=== PATIENT | male | born 1970 | race Caucasian/White ===

== ENCOUNTER → 2016-07-03 | Outpatient (CLI) | payer OTHER ==
--- NOTE | 2016-07-04 08:50 | XR ---
EXAMINATION TYPE: XR Hip Complete LT DATE OF EXAM: 07/03/2016 3:42 PM COMPARISON: NONE HISTORY: Pain TECHNIQUE: 2 views submitted FINDINGS: There is no evidence of erosive change or acute fracture. There is a tiny density along the lateral a cetabulum with hypertrophic change. This can occasionally seen with acetabular labral tear and femora l acetabular impingement. Correlate with MRI as clinically warranted. IMPRESSION: 1. Findings suspicious for acetabular labral tear with possible femoral acetabular impingement. Corre late with MRI as clinically warranted.
== END | disposition home or self-care (01) ==
LOC: RADXRYALE 15:22
PROVIDERS: ATTEND Acupuncturist
DX: M25.552 Pain in left hip (principal)
CPT/HCPCS: 73502

== ENCOUNTER 2016-12-06 18:33 | Observation (INO) | payer OTHER ==
[2016-12-06] MEDS ORDERED: RX INFO: IV CONTRAST WAS GIVEN 1 EACH MISC MISCELLANE PRN (19:21)
--- NOTE | 2016-12-06 19:25 | ED ---
Abdominal Pain HPI - General Source: patient, RN notes reviewed, old records reviewed Mode of arrival: ambulatory Limitations: no limitations <Lisa Quezada - Last Filed: 12/06/16 20:01> <Te Hammond - Last Filed: 12/06/16 22:12> <Mingo Webster - Last Filed: 12/10/16 22:53> - General Chief Complaint: Abdominal Pain Stated Complaint: left side stomach pain Time Seen by Provider: 12/06/16 19:08 - History of Present Illness Initial Comments: 46-year-old male presents emergency department chief complaining of left-sided abdominal pain. Patient reports yesterday when he was working out in his car he was working with ranges and felt a sudden pop in his abdomen. Patient reports that he felt his intestines protrude through the air and he did have a difficult time being able to put them back in. Patient reports he is had abdominal pain TODAY. He reports that anytime he moves the area becomes increasingly painful and tender. He did report that he had a few episodes of vomiting after drinking coffee today. Patient reports he feels nauseated. Denies any fever or chills. He denies any redness to the abdomen. is a relatively thin man, and states that each time he doesn't movement he can feel something protrudes outward. Patient denies any recent fever, chills, shortness of breath, chest pain, back pain, abdominal pain, nausea vomiting, numbness or tingling, dysuria or hematuria, constipation or diarrhea, headaches or visual changes, or any other current symptoms (Lisa Quezada) - Related Data Home Medications Medication Instructions Recorded Confirmed Gabapentin [Neurontin] 300 mg PO TID 12/06/16 12/06/16 Lisinopril [Zestril] 2.5 mg PO DAILY 12/06/16 12/06/16 oxyCODONE-APAP 10-325MG [Percocet 1 tab PO Q6HR PRN 12/06/16 12/06/16 10-325 mg] rOPINIRole HCL [Requip] 0.5 mg PO HS 12/06/16 12/06/16 tiZANidine HCL [Zanaflex] 4 mg PO TID 12/06/16 12/06/16 Previous Rx's Medication Instructions Recorded Albuterol Sulfate [Proventil Hfa] 2 puff INHALATION QID #1 inhaler 12/08/16 Ipratropium [place] [Atrovent Hfa] 2 puff INHALATION QID #1 inhaler 12/08/16 Nicotine 21Mg/24Hr Patch [Habitrol] 1 patch TRANSDERM DAILY #30 patch 12/08/16 Omeprazole [PriLOSEC] 20 mg PO AC-BID #60 cap 12/08/16 predniSONE 10 mg PO DIRECTED #30 tab 12/08/16 Allergies Allergy/AdvReac Type Severity Reaction Status Date / Time Penicillins Allergy Unknown Verified 12/06/16 19:11 Review of Systems ROS Other: All systems not noted in ROS Statement are negative. <Lisa Quezada - Last Filed: 12/06/16 20:01> ROS Other: All systems not noted in ROS Statement are negative. <Te Hammond - Last Filed: 12/06/16 22:12> ROS Other: All systems not noted in ROS Statement are negative. <Mingo Webster - Last Filed: 12/10/16 22:53> ROS Statement: Those systems with pertinent positive or pertinent negative responses have been documented in the HPI. Past Medical History Additional Past Medical History / Comment(s): chronic back pain History of Any Multi-Drug Resistant Organisms: None Reported Past Surgical History: No Surgical Hx Reported Past Psychological History: No Psychological Hx Reported Smoking Status: Current every day smoker Past Alcohol Use History: None Reported Past Drug Use History: None Reported <Lisa Quezada - Last Filed: 12/06/16 20:01> General Exam Limitations: no limitations General appearance: alert, in no apparent distress Head exam: Present: atraumatic, normocephalic, normal inspection Eye exam: Present: normal appearance, PERRL, EOMI. Absent: scleral icterus, conjunctival injection, periorbital swelling ENT exam: Present: normal exam, mucous membranes moist Neck exam: Present: normal inspection. Absent: tenderness, meningismus, lymphadenopathy Respiratory exam: Present: normal lung sounds bilaterally. Absent: respiratory distress, wheezes, rales, rhonchi, stridor Cardiovascular Exam: Present: regular rate, normal rhythm, normal heart sounds. Absent: systolic murmur, diastolic murmur, rubs, gallop, clicks GI/Abdominal exam: Present: soft, tenderness (LUQ and Periumbilical tenderness. No palpable bulge noted on Carnet sign. ), normal bowel sounds. Absent: distended, guarding, rebound, rigid Extremities exam: Present: normal inspection, full ROM, normal capillary refill. Absent: tenderness, pedal edema, joint swelling, calf tenderness Back exam: Present: normal inspection Neurological exam: Present: alert, oriented X3, CN II-XII intact Psychiatric exam: Present: normal affect, normal mood Skin exam: Present: warm, dry, intact, normal color. Absent: rash <Lisa Quezada - Last Filed: 12/06/16 20:01> Vital Signs 12/06/16 12/06/16 12/06/16 18:56 20:59 21:26 Temperature 98.4 F 98.1 F Pulse Rate 74 56 L 100 Respiratory 20 18 18 Rate Blood Pressure 129/78 135/88 O2 Sat by Pulse 99 99 Oximetry 12/06/16 22:34 Temperature 98.1 F Pulse Rate 63 Respiratory 16 Rate Blood Pressure 130/82 O2 Sat by Pulse 97 Oximetry Medical Decision Making - Lab Data Result diagrams: 12/06/16 19:35 <Lisa Quezada - Last Filed: 12/06/16 20:01> - Lab Data Result diagrams: 12/06/16 19:35 12/06/16 19:35 <Te Hammond - Last Filed: 12/06/16 22:12> - Lab Data Result diagrams: 12/08/16 07:03 12/07/16 08:26 <Mingo Webster - Last Filed: 12/10/16 22:53> - Medical Decision Making I saw this patient in conjunction with the physician care management assistant. I performed independent history and physical exam. Agree with case management. (Mingo Webster) - Lab Data Lab Results 12/06/16 12/06/16 12/06/16 Range/Units 19:35 19:35 20:51 WBC 13.3 H (3.8-10.6) k/uL RBC 4.38 (4.30-5.90) m/uL Hgb 13.6 (13.0-17.5) gm/dL Hct 41.8 (39.0-53.0) % MCV 95.5 (80.0-100.0) fL MCH 31.0 (25.0-35.0) pg MCHC 32.5 (31.0-37.0) g/dL RDW 13.7 (11.5-15.5) % Plt Count 210 (150-450) k/uL Neutrophils % 73 % Lymphocytes % 17 % Monocytes % 7 % Eosinophils % 2 % Basophils % 0 % Neutrophils # 9.7 H (1.3-7.7) k/uL Lymphocytes # 2.2 (1.0-4.8) k/uL Monocytes # 0.9 (0-1.0) k/uL Eosinophils # 0.3 (0-0.7) k/uL Basophils # 0.1 (0-0.2) k/uL Sodium 135 L (137-145) mmol/L Potassium 3.7 (3.5-5.1) mmol/L Chloride 103 (98-107) mmol/L Carbon Dioxide 21 L (22-30) mmol/L Anion Gap 11 mmol/L BUN 11 (9-20) mg/dL Creatinine 0.72 (0.66-1.25) mg/dL Est GFR (MDRD) Af Amer >60 (>60 ml/min/1.73 sqM) Est GFR (MDRD) Non-Af >60 (>60 ml/min/1.73 sqM) Glucose 106 H (74-99) mg/dL Plasma Lactic Acid [place] 0.7 (0.7-2.0) mmol/L Calcium 9.3 (8.4-10.2) mg/dL Total Bilirubin 0.8 (0.2-1.3) mg/dL AST 42 (17-59) U/L ALT 41 (21-72) U/L Alkaline Phosphatase 59 (38-126) U/L Total Protein 6.9 (6.3-8.2) g/dL Albumin 4.4 (3.5-5.0) g/dL Amylase 38 (30-110) U/L Lipase 84 (23-300) U/L Disposition <Lisa Quezada - Last Filed: 12/06/16 20:01> <Te Hammond - Last Filed: 12/06/16 22:12> <Mingo Webster - Last Filed: 12/10/16 22:53> Clinical Impression: Gastritis, Intractable abdominal pain Disposition: ADMITTED IP TO THIS HOSP Condition: Stable Addendum entered and electronically signed by Lisa Quezada PA-C 12/07/16 07 :56: At 8:10 PM on 09/05/2016 care was transferred to [facility].
[2016-12-06] MEDS: SODIUM CHLORIDE 0.9% 1,000 ML IV SCH (19:39)
[2016-12-06 19:45] LABS: Basophils # (A) 0.1 k/uL (0-0.2); Basophils % (A) 0 %; CH 31.7; CHCM 33.3; Eosinophils # (A) 0.3 k/uL (0-0.7); Eosinophils % (A) 2 %; HCT 41.8 % (39.0-53.0); HDW 2.22; HGB 13.6 gm/dL (13.0-17.5); Luc # (Auto) 0.18; Luc % (Auto) 1; Lymphocytes # (A) 2.2 k/uL (1.0-4.8); Lymphocytes % (A) 17 %; MCHC 32.5 g/dL (31.0-37.0); MCV 95.5 fL (80.0-100.0); Mean Platelet Volume 8.3; Monocytes # (A) 0.9 k/uL (0-1.0); Monocytes % (A) 7 %; Neutrophils # (A) 9.7 k/uL (1.3-7.7); Neutrophils % (A) 73 %; RBC 4.38 m/uL (4.30-5.90); RDW 13.7 % (11.5-15.5); WBC 13.3 k/uL (3.8-10.6); WBC (Perox) 13.78
[2016-12-06 20:02] LABS: ALT 41 U/L (21-72); AST 42 U/L (17-59); Alkaline Phosphatase 59 U/L (38-126); Amylase 38 U/L (30-110); Anion Gap 11 mmol/L; Blood Urea Nitrogen 11 mg/dL (9-20); Calcium 9.3 mg/dL (8.4-10.2); Carbon Dioxide 21 mmol/L (22-30); Chloride 103 mmol/L (98-107); Glucose 106 mg/dL (74-99); Non-African American GFR(MDRD) >60 (>60 ml/min/1.73 sqM); Potassium 3.7 mmol/L (3.5-5.1); Sodium 135 mmol/L (137-145); Total Bilirubin 0.8 mg/dL (0.2-1.3); Total Protein 6.9 g/dL (6.3-8.2)
--- NOTE | 2016-12-06 20:30 | CT ---
EXAMINATION TYPE: CT abdomen pelvis w con DATE OF EXAM: 12/06/2016 COMPARISON: NONE HISTORY: Patient complains of LUQ pain and bulging, nausea, and vomiting. CT DLP: 326.3 mGycm Automated exposure control for dose reduction was used. TECHNIQUE: Helical acquisition of images was performed from the lung bases through the pelvis. CONTRAST: Performed without Oral Contrast and with IV Contrast, patient injected with 100 mL of Omnipaque 300. FINDINGS: Lung bases are clear of infiltrate. Heart size is normal. There is no pleural effusion. The liver spleen pancreas gallbladder appear normal. Bile ducts are not dilated. There is no adrenal mass. Kidneys show satisfactory contrast opacification. There is no hydronephrosi s. There is no retroperitoneal adenopathy. There is no ascites. Bladder distends smoothly. There is n o sign of a pelvic mass. I see no bony destructive process. Appendix is not definitely seen. There is no sign of appendicitis. There is no sign of a hernia. There is thickening and decreased density of the wall of the body and antrum of the stomach. This saeed sures up to 1.6 cm in thickness. IMPRESSION: There is diffuse thickening of the wall of the stomach with decreased attenuation consistent with carolyn ma. The appearance is nonspecific. I would consider nonspecific gastritis. Gastric ischemia.
[2016-12-06] MEDS ORDERED: HYDROmorphone 0.5 MG/0.5 ML SYRINGE IVP STA (21:57)
[2016-12-06] MEDS ORDERED: PANTOPRAZOLE 40 MG/10 ML VIAL IVP STA (21:57)
[2016-12-06] MEDS ORDERED: NALOXONE 0.4 MG/ML 1 ML VIAL IV PRN (22:13)
[2016-12-07] MEDS: HYDROmorphone 0.5 MG/0.5 ML SYRINGE IVP PRN ×3 (01:10→12:59)
[2016-12-07] MEDS: SODIUM CHLORIDE 0.9% 1,000 ML IV SCH ×2 (04:47→18:01)
[2016-12-07] MEDS: oxyCODONE-APAP 10-325MG 1 EACH TAB PO PRN ×2 (07:31→21:32)
[2016-12-07] MEDS: LISINOPRIL 2.5 MG TAB PO SCH (08:21)
[2016-12-07] MEDS: GABAPENTIN 300 MG CAP PO SCH ×3 (08:22→21:32)
[2016-12-07 08:39] LABS: Basophils % (A) 0 %; CHCM 32.8; Eosinophils # (A) 0.3 k/uL (0-0.7); Eosinophils % (A) 2 %; HCT 42.8 % (39.0-53.0); HGB 13.6 gm/dL (13.0-17.5); Luc # (Auto) 0.17; Luc % (Auto) 2; Lymphocytes # (A) 1.8 k/uL (1.0-4.8); Lymphocytes % (A) 18 %; MCH 31.1 pg (25.0-35.0); MCHC 31.7 g/dL (31.0-37.0); MCV 98.2 fL (80.0-100.0); Mean Platelet Volume 7.5; Monocytes # (A) 0.7 k/uL (0-1.0); Monocytes % (A) 7 %; Neutrophils # (A) 7.4 k/uL (1.3-7.7); Neutrophils % (A) 71 %; RBC 4.36 m/uL (4.30-5.90); RDW 12.6 % (11.5-15.5); WBC 10.4 k/uL (3.8-10.6); WBC (Perox) 10.68
[2016-12-07] MEDS: tiZANidine 4 MG TAB PO SCH ×3 (08:44→21:32)
[2016-12-07 08:56] LABS: ALT 40 U/L (21-72); AST 32 U/L (17-59); Alkaline Phosphatase 59 U/L (38-126); Anion Gap 13 mmol/L; Blood Urea Nitrogen 8 mg/dL (9-20); Calcium 8.9 mg/dL (8.4-10.2); Carbon Dioxide 17 mmol/L (22-30); Chloride 109 mmol/L (98-107); Glucose 81 mg/dL (74-99); Non-African American GFR(MDRD) >60 (>60 ml/min/1.73 sqM); Potassium 4.2 mmol/L (3.5-5.1); Sodium 139 mmol/L (137-145); Total Bilirubin 0.8 mg/dL (0.2-1.3); Total Protein 6.5 g/dL (6.3-8.2)
--- NOTE | 2016-12-07 14:05 | P.GSCN ---
<Danelle Danielle - Last Filed: 12/07/16 13:51> History of Present Illness Consult date: 12/07/16 Reason for Consult: Left-sided abdominal pain History of present illness: 46-year-old male being seen at the request of the attending for surgical eval for left sided abdominal pain. Patient presented on the day of admission to the emergency room stated that he was working on a car lifting something heavy when he felt something pop in his abdomen. Patient stated that he had abdominal pain to the bilateral lower abdominal wall left greater than the right. Patient stated that he felt a bulge painful tender. Patient denied any fever chills denies any redness to the abdomen. Patient stated that he went to bed and tried to rest the pain persist presented to the emergency room. Patient does give a history of smoking marijuana on the day of admission to the emergency room states he drinks beer daily up to a sixpack last alcohol the day of admission to the emergency room. Additionally patient states he did smoke marijuana on the day of admission to the emergency room patient denies any similar episodes. Denies any shortness of breath chest pain back pain nausea vomiting or change in bowel habits. Patient denies any unintentional weight loss. Patient denies any decrease appetite. Patient did have a CAT scan of the abdomen pelvis with contrast it did show dye diffuse thickening of the wall of the stomach with decreased attenuation consistent with edema Patient has no significant past surgical history no medical history Review of Systems Essentially unremarkable except as mentioned in the present illness Past Medical History Past Medical History: COPD, Hypertension Additional Past Medical History / Comment(s): chronic back, neck, shoulder pain History of Any Multi-Drug Resistant Organisms: None Reported Past Surgical History: No Surgical Hx Reported Past Anesthesia/Blood Transfusion Reactions: No Reported Reaction Past Psychological History: No Psychological Hx Reported Smoking Status: Current every day smoker Past Alcohol Use History: None Reported Past Drug Use History: Marijuana - Past Family History Mother Family Medical History: Cancer Additional Family Medical History / Comment(s): Lung Cancer Father Family Medical History: Congestive Heart Failure (CHF), Dementia Additional Family Medical History / Comment(s): Bipolar Medications and Allergies Home Medications Medication Instructions Recorded Confirmed Type Gabapentin [Neurontin] 300 mg PO TID 12/06/16 12/06/16 History Ibuprofen [Motrin] 800 mg PO TID PRN 12/06/16 12/06/16 History Lisinopril [Zestril] 2.5 mg PO DAILY 12/06/16 12/06/16 History oxyCODONE-APAP 10-325MG [Percocet 1 tab PO Q6HR PRN 12/06/16 12/06/16 History 10-325 mg] rOPINIRole HCL [Requip] 0.5 mg PO HS 12/06/16 12/06/16 History tiZANidine HCL [Zanaflex] 4 mg PO TID 12/06/16 12/06/16 History Allergies Allergy/AdvReac Type Severity Reaction Status Date / Time Penicillins Allergy Unknown Verified 12/06/16 19:11 Surgical - Exam Vital Signs Temp Pulse Resp BP Pulse Ox 98.4 F 74 20 129/78 99 12/06/16 18:56 12/06/16 18:56 12/06/16 18:56 12/06/16 18:56 12/06/16 18:56 GENERAL APPEARANCE: 46-year-old male looking older than stated age thin alert , oriented, in no acute distress. VITAL SIGNS: Reviewed HEENT: Head is normocephalic and atraumatic. Pupils are equal and reactive. The nares are patent. Oropharynx is clear without lesions. NECK: Supple without lymphadenopathy. Traches midline. HEART: S1, S2. Regular rate and rhythm. Denies chest pain LUNGS: No crackles or wheezes are heard. On room air adequate air entry no cough noted no shortness of breath ABDOMEN: Soft flat, nontender, nondistended with good bowel sounds. No peritoneal signs. No palpable organomegaly or masses. EXTREMITIES: Normal skin color and turgor. No cyanosis, rash, ulceration, clubbing or edema. Radial pedal pulses are 2/4 bilaterally. NEUROLOGICAL: No focal deficits. Strength and sensation are grossly intact. Results - Labs 12/07/16 08:26 12/07/16 08:26 Abnormal Lab Results - Last 24 Hours (Table) 12/06/16 12/06/16 12/07/16 Range/Units 19:35 19:35 08:26 WBC 13.3 H (3.8-10.6) k/uL Neutrophils # 9.7 H (1.3-7.7) k/uL Sodium 135 L (137-145) mmol/L Chloride 109 H (98-107) mmol/L Carbon Dioxide 21 L 17 L (22-30) mmol/L BUN 8 L (9-20) mg/dL Glucose 106 H (74-99) mg/dL Diabetes panel 12/06/16 12/07/16 Range/Units 19:35 08:26 Sodium 135 L 139 (137-145) mmol/L Potassium 3.7 4.2 (3.5-5.1) mmol/L Chloride 103 109 H (98-107) mmol/L Carbon Dioxide 21 L 17 L (22-30) mmol/L BUN 11 8 L (9-20) mg/dL Creatinine 0.72 0.72 (0.66-1.25) mg/dL Glucose 106 H 81 (74-99) mg/dL Calcium 9.3 8.9 (8.4-10.2) mg/dL AST 42 32 (17-59) U/L ALT 41 40 (21-72) U/L Alkaline Phosphatase 59 59 (38-126) U/L Total Protein 6.9 6.5 (6.3-8.2) g/dL Albumin 4.4 4.1 (3.5-5.0) g/dL Calcium panel 12/06/16 12/07/16 Range/Units 19:35 08:26 Calcium 9.3 8.9 (8.4-10.2) mg/dL Albumin 4.4 4.1 (3.5-5.0) g/dL Pituitary panel 12/06/16 12/07/16 Range/Units 19:35 08:26 Sodium 135 L 139 (137-145) mmol/L Potassium 3.7 4.2 (3.5-5.1) mmol/L Chloride 103 109 H (98-107) mmol/L Carbon Dioxide 21 L 17 L (22-30) mmol/L BUN 11 8 L (9-20) mg/dL Creatinine 0.72 0.72 (0.66-1.25) mg/dL Glucose 106 H 81 (74-99) mg/dL Calcium 9.3 8.9 (8.4-10.2) mg/dL Adrenal panel 12/06/16 12/07/16 Range/Units 19:35 08:26 Sodium 135 L 139 (137-145) mmol/L Potassium 3.7 4.2 (3.5-5.1) mmol/L Chloride 103 109 H (98-107) mmol/L Carbon Dioxide 21 L 17 L (22-30) mmol/L BUN 11 8 L (9-20) mg/dL Creatinine 0.72 0.72 (0.66-1.25) mg/dL Glucose 106 H 81 (74-99) mg/dL Calcium 9.3 8.9 (8.4-10.2) mg/dL Total Bilirubin 0.8 0.8 (0.2-1.3) mg/dL AST 42 32 (17-59) U/L ALT 41 40 (21-72) U/L Alkaline Phosphatase 59 59 (38-126) U/L Total Protein 6.9 6.5 (6.3-8.2) g/dL Albumin 4.4 4.1 (3.5-5.0) g/dL Assessment and Plan Assessment: Impression Present on admission left lower quadrant pain with Umbilical tenderness Daily consumption of alcohol 6 pack a day last drink December 06 Daily current smoker 1 pack a day greater than a 20 year history probable COPD CAT scan of the abdomen pelvis shows diffuse thickening of the wall of the stomach consistent with edema gastritis not ruled out Plan Patient will be scheduled for an EGD today to evaluate wall thickening of the stomach gastritis not ruled out Smoking cessation reinforced patient's been advised to stop smoking cigarettes Abstinence from alcohol reinforced IV fluid for hydration Monitor closely for impending DTs DVT and GI prophylaxis Further recommendations pending The above impression and plan of care have been discussed and directed by signing physician. Danelle Danielle nurse practitioner acting as scribe for signing physician. <Lyudmila Marion - Last Filed: 12/07/16 16:11> Surgical - Exam Vital Signs Temp Pulse Resp BP Pulse Ox 98.4 F 74 20 129/78 99 12/06/16 18:56 12/06/16 18:56 12/06/16 18:56 12/06/16 18:56 12/06/16 18:56 Results - Labs 12/07/16 08:26 12/07/16 08:26 Abnormal Lab Results - Last 24 Hours (Table) 12/06/16 12/06/16 12/07/16 Range/Units 19:35 19:35 08:26 WBC 13.3 H (3.8-10.6) k/uL Neutrophils # 9.7 H (1.3-7.7) k/uL Sodium 135 L (137-145) mmol/L Chloride 109 H (98-107) mmol/L Carbon Dioxide 21 L 17 L (22-30) mmol/L BUN 8 L (9-20) mg/dL Glucose 106 H (74-99) mg/dL Diabetes panel 12/06/16 12/07/16 Range/Units 19:35 08:26 Sodium 135 L 139 (137-145) mmol/L Potassium 3.7 4.2 (3.5-5.1) mmol/L Chloride 103 109 H (98-107) mmol/L Carbon Dioxide 21 L 17 L (22-30) mmol/L BUN 11 8 L (9-20) mg/dL Creatinine 0.72 0.72 (0.66-1.25) mg/dL Glucose 106 H 81 (74-99) mg/dL Calcium 9.3 8.9 (8.4-10.2) mg/dL AST 42 32 (17-59) U/L ALT 41 40 (21-72) U/L Alkaline Phosphatase 59 59 (38-126) U/L Total Protein 6.9 6.5 (6.3-8.2) g/dL Albumin 4.4 4.1 (3.5-5.0) g/dL Calcium panel 12/06/16 12/07/16 Range/Units 19:35 08:26 Calcium 9.3 8.9 (8.4-10.2) mg/dL Albumin 4.4 4.1 (3.5-5.0) g/dL Pituitary panel 12/06/16 12/07/16 Range/Units 19:35 08:26 Sodium 135 L 139 (137-145) mmol/L Potassium 3.7 4.2 (3.5-5.1) mmol/L Chloride 103 109 H (98-107) mmol/L Carbon Dioxide 21 L 17 L (22-30) mmol/L BUN 11 8 L (9-20) mg/dL Creatinine 0.72 0.72 (0.66-1.25) mg/dL Glucose 106 H 81 (74-99) mg/dL Calcium 9.3 8.9 (8.4-10.2) mg/dL Adrenal panel 12/06/16 12/07/16 Range/Units 19:35 08:26 Sodium 135 L 139 (137-145) mmol/L Potassium 3.7 4.2 (3.5-5.1) mmol/L Chloride 103 109 H (98-107) mmol/L Carbon Dioxide 21 L 17 L (22-30) mmol/L BUN 11 8 L (9-20) mg/dL Creatinine 0.72 0.72 (0.66-1.25) mg/dL Glucose 106 H 81 (74-99) mg/dL Calcium 9.3 8.9 (8.4-10.2) mg/dL Total Bilirubin 0.8 0.8 (0.2-1.3) mg/dL AST 42 32 (17-59) U/L ALT 41 40 (21-72) U/L Alkaline Phosphatase 59 59 (38-126) U/L Total Protein 6.9 6.5 (6.3-8.2) g/dL Albumin 4.4 4.1 (3.5-5.0) g/dL Assessment and Plan Plan: History reviewed. Patient examined . CT reviewed. No peritonitis on CT scan. PLan for EGD with bx
[2016-12-07] MEDS ORDERED: PANTOPRAZOLE 40 MG/10 ML VIAL IVP SCH (14:15)
[2016-12-07] MEDS ORDERED: LIDOCAINE 1% INJ 10MG/ML (20 ML MDV) ONE (16:04)
[2016-12-07] MEDS ORDERED: PROPOFOL 10 MG/ML 20 ML VIAL IV ONE (16:04)
[2016-12-07] MEDS ORDERED: IV FLUID CONTINUATION 1,000 ML IV ONE (16:05)
--- NOTE | 2016-12-07 16:11 | P.OP ---
Date of Procedure: 12/07/16 Preoperative Diagnosis: Abdominal pain Alcohol dependence Marijuana use Postoperative Diagnosis: Prepyloric circumferential ulcer No active bleeding Hiatal hernia Procedure(s) Performed: EGD with biopsy Implants: NA Anesthesia: MAC Surgeon: Lyudmila Marion Condition: stable Disposition: PACU Indications for Procedure: 46 years old male presented to ER yesterday with acute onset of abdominal pain. Computed tomography scan showed diffuse thickening of the stomach with differential diagnosis of ischemia versus gastritis. Informed consent obtained and the patient elected to undergo EGD with possible biopsy. Patient smokes marijuana daily and drinks 6 pack of beer 3-4 times per week Operative Findings: Prepyloric circumferential ulcer No active bleeding Hiatal hernia Description of Procedure: A timeout was performed to verify the correct patient and correct procedure. Patient was on continuous vitals and pulse ox monitoring throughout the procedure. She was placed in lateral decubitus position and an oral bite block was inserted. A well-lubricated Olympus upper endoscope was passed orally. The esophagus was intubated without difficulty. The vocal cords were visualised and protected at all times. The endoscope was passed beyond the esophagus into the gastric lumen. Diffuse clots noted covering most of the gastric mucosa. No active bleeding noted . The stomach could be distended without any difficulty. The endoscope was passed beyond the pylorus into the first and second portion of the duodenum. No abnormality was noted in the duodenum mucosa. The gastric mucosal surface was flushed using multiple 30 mL saline irrigation to wash off clots. A circumferential prepyloric ulcer was noted with no active bleeding. A biopsy was taken from the edge of the ulcer Two random biopsies were taken from the gastric antrum using cold biopsy forceps. The scope was then retroflexed and hiatal hernia was noted which is Hill Grade 2. No mass noted within the gastric lumen. The GE junction is measured at 38 cm from the incisors . No evidence of reflux esophagitis. The endoscope was gradually withdrawn. No abnormality identified in the esophagus. Patient tolerated the procedure well and was taken to post anesthesia care unit in stable condition. FINAL DIAGNOSIS: 1. Hill Grade 2 Hiatal hernia 2. Abdominal pain 3. Gastric ulcers SPECIMEN: Antral biopsy Ulcer bx Final Pathologic Diagnosis A. STOMACH, PREPYLORIC, BIOPSY: MILD CHRONIC GASTRITIS WITH REACTIVE EPITHELIAL CHANGE. FOCAL NECROINFLAMMATORY EXUDATE SUGGESTIVE OF EROSION/ULCERATION. HELICOBACTER IMMUNOPEROXIDASE STAIN IS PERFORMED TO EVALUATE FOR HELICOBACTER ORGANISMS AND IS NEGATIVE (CONTROLS APPROPRIATE). B. STOMACH, ANTRUM, BIOPSY: MILD CHRONIC GASTRITIS WITH REACTIVE EPITHELIAL CHANGE. HELICOBACTER IMMUNOPEROXIDASE STAIN IS PERFORMED TO EVALUATE FOR HELICOBACTER ORGANISMS AND IS NEGATIVE (CONTROLS APPROPRIATE).
[2016-12-07] MEDS ORDERED: IPRATROPIUM-ALBUTEROL 3 ML NEB INHALATION SCH (16:30)
--- NOTE | 2016-12-07 17:42 | HP ---
HISTORY AND PHYSICAL DATE OF ADMISSION: 12/06/2016. PRESENTING COMPLAINT: Abdominal pain. HISTORY OF PRESENTING COMPLAINT: This is a 46-year-old patient I saw today on 12/07/2016. Patient 2 days ago was trying to help a friend with a wrench and really had to push out and suddenly while he was doing this, he felt something pop in his abdomen, developed severe pain and this was around the umbilicus and the patient is having significant pain since that time, is tender. No nausea, vomiting. No change in bowel habit. Simply localized tenderness. The belly wall had bulged for some time. REVIEW OF SYSTEMS: CONSTITUTIONAL: Tired. HEENT: None. RESPIRATORY: Wheezing, cough, chronic. CARDIOVASCULAR: None. GASTROINTESTINAL: Some heartburn. GENITOURINARY: None. MUSCULOSKELETAL: Chronic pain. DERMATOLOGICAL: None. HEMATOLOGIC: None. LYMPHATIC: None. PSYCHIATRY: Some anxiety. NEUROLOGICAL: None. PAST HISTORY: COPD, hypertension, chronic pain in the back. PAST SURGICAL HISTORY: None. SOCIAL HISTORY: The patient smokes about a pack and half a day, does 2 to 3 joints of marijuana, grows his own marijuana. Drinks a fair amount of alcohol. Lives with his fiancee. FAMILY HISTORY: Lung cancer. HOME MEDICATIONS: 1. Zanaflex 4 mg p.o. t.i.d. 2. Requip 4 mg and 5 mg p.o. q.h.s. 3. Percocet 10 1 tablet every 6 hours p.r.n. 4. Zestril 2.5 p.o. daily. 5. Motrin 800 mg p.o. t.i.d. p.r.n. 6. Neurontin 300 mg p.o. t.i.d. ALLERGIES: PENICILLIN. PHYSICAL EXAMINATION: Temperature 98.5, pulse 57, respirations 14, blood pressure 130/83, pulse ox 95% on room air. GENERAL APPEARANCE: Thin build, lying in bed, tired-appearing. EYES: Pupils equal. Conjunctivae normal. HEENT: Oral cavity normal. NECK: JVD not raised. Mass not palpable. RESPIRATORY: Effort increased. LUNGS: Decreased breath sounds. Prolonged expiration and wheezing. CARDIOVASCULAR: First and second sounds normal. No edema. ABDOMEN: Some tenderness over the rectus abdominis. No guarding or rigidity. Liver, spleen not palpable. LYMPHATIC: No lymph nodes palpable in neck or axillae. PSYCHIATRY: Alert and oriented x3. Mood and affect normal. NEUROLOGICAL: Pupils equal. Cranial nerves grossly intact. Power and sensation grossly intact. INVESTIGATIONS: White count 13.3, hemoglobin 13.6. Potassium 3.77. CT scan of the abdomen and pelvis showed some thickening of the wall of the stomach. ASSESSMENT: 1. Acute exacerbation in a patient who is a smoker. 2. Chronic nicotine dependence in a patient who is a smoker. 3. Chronic recreational marijuana use. 4. Chronic back pain, musculoskeletal, for which patient takes pain medications. 5. Acute abdominal pain, muscular, probably from stretching of muscles from acute excessive physical activity. 6. Acute on chronic gastritis likely from drinking alcohol and associated with nonsteroidal anti-inflammatory drugs. PLAN: Patient will be started on nebulized bronchodilators, inhaled steroids, IV steroids, put on nicotine patch and a pain patch. The patient will use a heating pad for the abdominal wall. I did explain to him that it will take some time for this to get better. Dr. Marion saw the patient, will be proceeding to do an EGD. MMODL / IJN: [id number] /
[2016-12-07] MEDS: SUCRALFATE 1 GM TAB PO SCH (17:56)
[2016-12-07] MEDS: PANTOPRAZOLE 40 MG/10 ML VIAL IVP SCH (17:57)
[2016-12-07] MEDS ORDERED: ENOXAPARIN 40 MG/0.4 ML SYRINGE SQ SCH (18:00)
[2016-12-07] MEDS: DIAZEPAM 2 MG TAB PO SCH ×2 (18:04→21:32)
[2016-12-07] MEDS: NICOTINE 21MG/24HR PATCH TRANSDERM SCH (18:27)
[2016-12-07] MEDS: IPRATROPIUM-ALBUTEROL 3 ML NEB INHALATION PRN (20:40)
[2016-12-07] MEDS: BUDESONIDE 1 MG/2 ML NEBU INHALATION SCH ×2 (20:41)
[2016-12-07] MEDS: FAMOTIDINE 20 MG TAB PO SCH (21:31)
[2016-12-07] MEDS: methylPREDNISolone SOD SUCCI 40 MG/ML 1 ML VIAL IV SCH (21:38)
[2016-12-08] MEDS: SODIUM CHLORIDE 0.9% 1,000 ML IV SCH ×2 (00:30→06:21)
[2016-12-08] MEDS: methylPREDNISolone SOD SUCCI 40 MG/ML 1 ML VIAL IV SCH ×2 (00:31→08:16)
[2016-12-08] MEDS: oxyCODONE-APAP 10-325MG 1 EACH TAB PO PRN ×2 (06:20→11:37)
[2016-12-08 08:06] LABS: CH 32.2; CHCM 33.8; HCT 42.4 % (39.0-53.0); HGB 13.9 gm/dL (13.0-17.5); MCH 31.2 pg (25.0-35.0); MCHC 32.7 g/dL (31.0-37.0); MCV 95.4 fL (80.0-100.0); Mean Platelet Volume 8.2; RBC 4.44 m/uL (4.30-5.90); RDW 12.5 % (11.5-15.5); WBC 13.1 k/uL (3.8-10.6)
[2016-12-08] MEDS: BUDESONIDE 1 MG/2 ML NEBU INHALATION SCH (08:12)
[2016-12-08] MEDS: NICOTINE 21MG/24HR PATCH TRANSDERM SCH (08:16)
[2016-12-08] MEDS: GABAPENTIN 300 MG CAP PO SCH (08:16)
[2016-12-08] MEDS: FAMOTIDINE 20 MG TAB PO SCH (08:17)
[2016-12-08] MEDS: LISINOPRIL 2.5 MG TAB PO SCH (08:17)
[2016-12-08] MEDS: SUCRALFATE 1 GM TAB PO SCH (08:17)
[2016-12-08] MEDS: PANTOPRAZOLE 40 MG/10 ML VIAL IVP SCH (08:18)
[2016-12-08] MEDS: tiZANidine 4 MG TAB PO SCH (08:18)
[2016-12-08] MEDS: DIAZEPAM 2 MG TAB PO SCH (08:26)
[2016-12-08 08:30] VITALS: BP 139/96; RESP 15; TEMP 96.1
--- NOTE | 2016-12-08 09:26 | P.PN ---
<Danelle Danielle Abram - Last Filed: 12/08/16 09:35> Subjective Progress Note Date: 12/08/16 46-year-old male being seen and examined at bedside sitting up taking a diet denies nausea vomiting denies epigastric discomfort denies abdominal pain. Patient states is anxious to be discharged. Patient initially presented to the emergency room with acute onset of abdominal pain. CAT scan abdomen and pelvis showed diffuse thickening of the stomach with differential diagnosis of ischemia versus gastritis. Surgical consultation was requested by the attending for the above-mentioned symptoms The patient did undergo an EGD with biopsies finding showed no active bleed, hiatal hernia, prepyloric circumferential ulcer. Objective - Vital Signs Vital signs: Vital Signs Temp 96.1 F L 12/08/16 08:27 Pulse 90 12/08/16 08:27 Resp 15 12/08/16 08:57 BP 139/96 12/08/16 08:27 Pulse Ox 94 L 12/08/16 00:41 Intake & Output 12/07/16 12/08/16 12/08/16 18:59 06:59 18:59 Intake Total 350 1500 Balance 350 1500 Intake: IV 350 Intake, IV Titration 1150 Amount Sodium Chloride 0.9% 1, 1150 000 ml @ 100 mls/hr IV . Q10H ARACELI Rx#:[id number] Oral 350 Other: # Voids 3 2 1 - Exam Physical exam 46-year-old male resting comfortably in bed sitting up taking a diet states is anxious to be discharged Lungs essentially clear with adequate air movement on room air Heart S1-S2 audible regular Abdomen flat nontender nondistended no nausea no vomiting no esophageal reflux symptoms no frequent stooling Extremities no edema noted - Labs CBC & Chem 7: 12/08/16 07:03 12/07/16 08:26 Labs: Abnormal Lab Results - Last 24 Hours (Table) 12/07/16 12/08/16 Range/Units 19:50 07:03 WBC 13.1 H (3.8-10.6) k/uL Ur Oxycodone Screen Detected H (NotDetected) U Marijuana (THC) Screen Detected H (NotDetected) Assessment and Plan Assessment: Impression Present on admission left lower quadrant pain with Umbilical tenderness Daily consumption of alcohol 6 pack a day last drink December 06 Daily current smoker 1 pack a day greater than a 20 year history probable COPD CAT scan of the abdomen pelvis shows diffuse thickening of the wall of the stomach consistent with edema gastritis not ruled out Plan No evidence of an acute surgical abdomen From a surgical perspective patient is felt to be clinically stable to proceed with a discharge defer to the timing of the discharge per medicine service Smoking cessation reinforced patient's been advised to stop smoking cigarettes Abstinence from alcohol reinforced Monitor closely for impending DTs DVT and GI prophylaxis Continue with the PPI protonix as ordered Continue with Carafate 1 g before meals twice a day We'll sign off and re-eval as needed The above impression and plan of care have been discussed and directed by signing physician. Danelle Danielle nurse practitioner acting as scribe for signing physician. <Lyudmila Marion - Last Filed: 12/08/16 14:24> Objective - Vital Signs Vital signs: Vital Signs Temp 96.1 F L 12/08/16 08:27 Pulse 88 12/08/16 11:47 Resp 15 12/08/16 08:57 BP 139/96 12/08/16 08:27 Pulse Ox 94 L 12/08/16 00:41 Intake & Output 12/07/16 12/08/16 12/08/16 18:59 06:59 18:59 Intake Total 350 1500 800 Balance 350 1500 800 Intake: IV 350 Intake, IV Titration 1150 800 Amount Sodium Chloride 0.9% 1, 1150 800 000 ml @ 100 mls/hr IV . Q10H ARACELI Rx#:[id number] Oral 350 Other: # Voids 3 2 1 - Labs CBC & Chem 7: 12/08/16 07:03 12/07/16 08:26 Labs: Abnormal Lab Results - Last 24 Hours (Table) 12/07/16 12/08/16 Range/Units 19:50 07:03 WBC 13.1 H (3.8-10.6) k/uL Ur Oxycodone Screen Detected H (NotDetected) U Marijuana (THC) Screen Detected H (NotDetected)
[2016-12-08] MEDS: IPRATROPIUM-ALBUTEROL 3 ML NEB INHALATION PRN (11:35)
[2016-12-08 11:47] VITALS: PULSE 88
--- NOTE | 2016-12-09 20:11 | HP ---
HISTORY AND PHYSICAL DATE OF ADMISSION: 12/06/16. ADDENDUM: Correction: ASSESSMENT: #1 should read: Acute chronic obstructive pulmonary disease exacerbation in a smoker. MMODL / IJN: [id number] /
--- NOTE | 2016-12-09 20:41 | DS ---
DISCHARGE SUMMARY DATE OF ADMISSION: December 06, 2016. DATE OF DISCHARGE: December 08, 2016. FINAL DIAGNOSES: 1. Acute chronic obstructive pulmonary disease exacerbation in a smoker. 2. Chronic nicotine dependence and the patient is a smoker. 3. Chronic recreational marijuana use. 4. Chronic back pain likely musculoskeletal. 5. Acute abdominal pain felt to be musculoskeletal from excessive physical activity. 6. Acute peptic ulcer disease as a pre-pyloric gastric ulcer, possibly taking NSAIDs and drinking alcohol. CONSULTATION: Dr. Marion from general surgery. HOSPITAL COURSE: This patient presented with short of breath, wheezing, found to have COPD exacerbation. Also had acute abdominal pain and when he was trying to use a wrench felt to be a musculoskeletal muscular pain from maybe tearing some fibers. EGD showed a pre-pyloric ulcer. Patient and fiancee counseled heavily on the day of discharge regarding cessation of smoking and alcohol, use of NSAID, exercising. PHYSICAL EXAMINATION: LUNGS: Decreased breath sounds. ABDOMEN: Soft mild tenderness felt to be musculoskeletal. DISCHARGE MEDICATIONS: 1. Neurontin 300 mg p.o. t.i.d. 2. Zestril 2.5 mg p.o. daily. 3. Percocet 10 1 tab q.6h p.r.n. 4. Requip 0.5 p.o. q.h.s. 5. Zanaflex 4 mg p.o. t.i.d. 6. Proventil HFA 2 puffs q.i.d. 7. Atrovent HFA 2 puffs q.i.d. 8. Nicotine patch 21 mg b.i.d. 9. Prednisone taper. Follow up with Dr. Marion as needed. Follow up with Dr. Zheng in 3 days. MMODL / IJN: [id number] /
== END 2016-12-08 14:25 | disposition home or self-care (01) ==
LOC: EC 18:33 → 3SUR 22:06
PROVIDERS: ADMIT Hospitalist; ATTEND Hospitalist
DX: K29.00 Acute gastritis without bleeding (principal); K29.50 Unspecified chronic gastritis without bleeding; J44.1 Chronic obstructive pulmonary disease with (acute) exacerbation; K44.9 Diaphragmatic hernia without obstruction or gangrene; I10 Essential (primary) hypertension; G89.29 Other chronic pain; R10.32 Left lower quadrant pain; M54.9 Dorsalgia, unspecified; F17.210 Nicotine dependence, cigarettes, uncomplicated; F10.10 Alcohol abuse, uncomplicated; F12.90 Cannabis use, unspecified, uncomplicated; Z79.899 Other long term (current) drug therapy; Z88.0 Allergy status to penicillin
CPT/HCPCS: 99285 ×2; 96374 ×2; 96375 ×3; 96376 ×2; 96372; 36415; 94640 ×3; 86900; 86901; 88305; 80053 ×2; 82150; 83605; 83690; 85025 ×2; 85027; 86850; 88342; 80306; 74177; 43239; G0378 ×3; S4990 ×2; J2920 ×2; J2001; J1650; Q9967; J2704; C9113 ×3; J1170 ×2

== ENCOUNTER → 2017-03-06 | Outpatient (CLI) | payer OTHER ==
--- NOTE | 2017-03-06 11:48 | XR ---
EXAMINATION TYPE: XR shoulder complete RT DATE OF EXAM: 03/06/2017 COMPARISON: NONE HISTORY: Pain TECHNIQUE: Three views are submitted. FINDINGS: The osseous structures are intact. There is no acute fracture or dislocation. Arthropathy of the AC joint. IMPRESSION: 1. AC joint arthropathy correlate with MRI if concern for rotator cuff disease.
== END | disposition home or self-care (01) ==
LOC: RADXRYALE 11:17
PROVIDERS: ATTEND Physician Assistant
DX: M12.9 Arthropathy, unspecified (principal)

== ENCOUNTER → 2017-03-20 | Outpatient (CLI) | payer OTHER ==
--- NOTE | 2017-03-20 11:16 | MR ---
EXAMINATION TYPE: MR shoulder RT wo con DATE OF EXAM: 03/20/2017 COMPARISON: NONE HISTORY: Right shoulder pain TECHNIQUE: Multiplanar, multisequence imaging of the right shoulder is performed without contrast. FINDINGS: Rotator Cuff: There is edema along the tendon of the infraspinatus muscle near the musculotendinous j unction. Distally there is thickening and abnormal increased signal involving the supraspinatus tendo n extending a length of 1.8 cm compatible with partial tear. Insertion of the infraspinatus tendon th ere also is increased signal compatible with partial tear. Subscapularis tendon intact. Acromioclavicular Joint: Hypertrophic change of the AC joint results in impingement. Glenohumeral Joint: No joint effusion. Glenohumeral ligaments intact. Labrum: The labrum appears grossly intact given limitation of non-arthrogram study. Biceps Tendon: The long head of biceps is in normal location within bicipital groove. Bone marrow signal: Abnormal signal within the humeral head likely in the basis of chronic impingemen t with benign cystic changes noted. Other: No additional significant abnormality is appreciated. IMPRESSION: Marked thickening of the distal margin of the supraspinatus tendon extending a length of 1.8 cm abdoulaye tible with a partial tear with no retraction. Through thickness component suspected. Tendinosis involving the infraspinatus tendon near the musculotendinous junction. Additional thickeni ng and increased signal at the insertion of the tendon compatible with partial tear. No retraction or through thickness tear. Impingement secondary to AC joint arthropathy.
== END | disposition home or self-care (01) ==
LOC: RADMRIMAIN 09:29
PROVIDERS: ATTEND Family Medicine
DX: S46.011A Strain of muscle(s) and tendon(s) of the rotator cuff of right shoulder, initial encounter (principal); M19.011 Primary osteoarthritis, right shoulder; M75.91 Shoulder lesion, unspecified, right shoulder

== ENCOUNTER → 2017-03-20 | Outpatient (CLI) | payer OTHER ==
--- NOTE | 2017-03-20 11:10 | MR ---
EXAMINATION TYPE: MR cervical spine wo con DATE OF EXAM: 03/20/2017 COMPARISON: X-ray 04/18/2013, MRI 05/31/2015 HISTORY: disc herniated TECHNIQUE: Multiplanar, multisequence images of the cervical spine were acquired. Exam significantly limited by motion artifact. C2-C3: No disc herniation or canal stenosis. No foraminal encroachment. C3-C4: No disc herniation or canal stenosis. There is uncovertebral joint hypertrophy bilaterally. Mi ld facet arthropathy. C4-C5: Severe motion artifact limits assessment. Central disc bulging suspected. No obvious foraminal encroachment. C5-C6: Severe degenerative disc disease. Severe motion artifact limits assessment there appears to be due to posterior disc bulging and spurring with uncovertebral joint hypertrophy. Canal stenosis and bilateral foraminal encroachment suspected. Could not assess the spinal cord for abnormal signal. C6-C7: Broad-based disc protrusion with posterior spurring effacing the thecal sac. Moderate to sever e bilateral foraminal encroachment appears stable. Level nondiagnostic due to motion artifact C7-T1: No definite disc herniation or canal stenosis. Limited assessment due to severe motion artifac t.. Cervical segments are intact. There is normal alignment. Cervical spinal cord assessment is nondiag nostic due to severe motion artifact.. Craniovertebral junction relationships are within normal limi ts. IMPRESSION: 1. Exam is severely limited with regard to the axial images due to extreme motion artifact. Grossly n o abnormal signal seen in the spinal cord on the sagittal images. Axial images are limited. 2. Severe degenerative disc disease C5-6 and C6-C7 with posterior disc protrusion and spurring and robertson spected canal stenosis and bilateral foraminal encroachment appears to be stable as visualized.
== END | disposition home or self-care (01) ==
LOC: RADMRIMAIN 09:32
PROVIDERS: ATTEND Acupuncturist
DX: M50.222 Other cervical disc displacement at C5-C6 level (principal); M50.322 Other cervical disc degeneration at C5-C6 level; M46.02 Spinal enthesopathy, cervical region
CPT/HCPCS: 72141

== ENCOUNTER → 2017-06-09 | Outpatient (CLI) | payer OTHER ==
--- NOTE | 2017-06-10 17:05 | MR ---
EXAMINATION TYPE: MR hip LT wo con DATE OF EXAM: 06/09/2017 COMPARISON: NONE HISTORY: 46-year-old male Lt hip pain, fell off a car, labral tear TECHNIQUE: Multiplanar, multisequence images of the left hip were obtained without IV contrast. FINDINGS: Large serpiginous areas of abnormal signal along the weightbearing aspect of the superior femoral hea ds. Double line signs are demonstrated but without any significant surrounding bone marrow edema. There may be a subtle 1.3 x 1.1 cm subchondral fracture anteriorly along the weightbearing aspect, co naun image 9 and axial image 18. No rochelle collapse of the articular surface. Small symmetric hip chelsea nt effusions. There is some degenerative signal within the acetabular labrum along the anterior superior quadrant, sagittal image 17. The rectus femoris and hamstrings origins are intact. The iliopsoas and gluteal insertions are satisf actory. Symmetric course, caliber, and signal intensity of the sciatic nerves. SI joints and sacrum appear intact. No suspicious bone marrow placement. Patchy red marrow hyperplasia is present and can be seen in the setting of anemia, smoking, and chronic disease. There are anterior femoral head neck junction osseous excrescences IMPRESSION: 1. Bilateral femoral head AVN. Correlate for risk factors for AVN in this patient. 2. More focal subchondral signal changes along the anterior weightbearing left femoral head could rep resent a subtle 1.3 cm area of early subchondral fracture. No rochelle articular surface collapse. Other pablo, the bilateral AVN changes are felt to be more chronic given the lack of significant marrow fab a.
== END ==
LOC: RADMRIMAIN 14:21
PROVIDERS: ATTEND Acupuncturist
DX: M87.852 Other osteonecrosis, left femur (principal)

== ENCOUNTER 2017-11-21 20:14 | Inpatient (IN) | payer OTHER ==
[2017-11-21 22:11] VITALS: BMI 17.7
[2017-11-21] MEDS: oxyCODONE-APAP 10-325MG 1 EACH TAB PO PRN (23:03)
[2017-11-21] MEDS: GABAPENTIN 300 MG CAP PO SCH (23:05)
[2017-11-21] MEDS: tiZANidine 4 MG TAB PO SCH (23:05)
[2017-11-21] MEDS: LACTATED RINGERS 1,000 ML IV SCH (23:06)
[2017-11-21] MEDS: NICOTINE 21MG/24HR PATCH TRANSDERM SCH (23:06)
[2017-11-21] MEDS: CLINDAMYCIN 600 MG in DEXTROSE 5% IN WATER 50 ML IVPB SCH ×2 (23:21)
[2017-11-22] MEDS: CLINDAMYCIN 600 MG in DEXTROSE 5% IN WATER 50 ML IVPB SCH ×4 (06:15→12:06)
[2017-11-22] MEDS: LACTATED RINGERS 1,000 ML IV SCH ×3 (06:15→19:56)
[2017-11-22] MEDS: oxyCODONE-APAP 10-325MG 1 EACH TAB PO PRN ×4 (06:15→23:25)
[2017-11-22] MEDS: ALBUTEROL NEBULIZED 2.5 MG/3 ML INHALATION SCH ×3 (07:19→15:32)
[2017-11-22] MEDS: GABAPENTIN 300 MG CAP PO SCH ×3 (07:40→19:55)
[2017-11-22] MEDS: LISINOPRIL 2.5 MG TAB PO SCH (07:40)
[2017-11-22] MEDS: NICOTINE 21MG/24HR PATCH TRANSDERM SCH (07:40)
[2017-11-22] MEDS: tiZANidine 4 MG TAB PO SCH ×3 (07:40→19:55)
[2017-11-22] MEDS: KETOROLAC 30 MG/ML 1 ML VIAL IVP SCH ×2 (13:26→19:53)
[2017-11-22] MEDS: IPRATROPIUM 0.5 MG/2.5 ML NEBU INHALATION SCH ×2 (13:35→18:33)
[2017-11-22] MEDS ORDERED: VANCOMYCIN IV PER PHARMACY 1 EACH MISC MISCELLANE PRN (13:51)
--- NOTE | 2017-11-22 13:53 | P.GSCN ---
History of Present Illness Consult date: 11/22/17 Reason for Consult: Osteomyelitis of the mandible. History of present illness: 47-year-old male known to my service. The patient had all of his teeth removed and dentures fitted approximately a month and a half ago" dental clinic in [place]. The patient was having pain and swelling of the right mandible which was related to a denture sore over his mandibular kaelyn. After removal of the lower denture and oral antiseptic mouthwash the pain and swelling went away and the patient had exposed bone of the right mandible in the area of the mandibular kaelyn. It is common practice to remove these kaelyn prior to proceeding a denture and the plan was to have the patient's kaelyn removed and an effort to have his denture fit better. The patient was seen 1 week ago and had a bilateral mandibular kaelyn removal under IV sedation in our office. Patient tolerated the procedure well. And primary closure was achieved. Patient had pain and swelling of the right jaw which he states came up 4 days ago. The patient did not attempt to contact me but rather went emergency room last night and was admitted to the hospital service. The patient was then transferred to [facility] for a oral surgery evaluation. Review of Systems - Constitutional Reports as per HPI - EENT EENT Comment(s): Patient reports that he thought the swelling was a folliculitis and he had a similar swelling on the left side one month ago Eyes: denies as per HPI Ears, nose, mouth and throat: Reports dental pain, Reports headache, Reports mouth pain, Reports neck lump, Reports nose pain - Cardiovascular Reports as per HPI - Respiratory Reports as per HPI - Gastrointestinal Reports as per HPI - Genitourinary Reports as per HPI - Musculoskeletal Reports as per HPI - Integumentary Reports as per HPI - Neurological Reports as per HPI - Psychiatric Reports as per HPI - Endocrine Reports as per HPI - Hematologic/Lymphatic Reports as per HPI - Allergic/Immunologic Reports as per HPI Past Medical History Past Medical History: COPD, Hypertension Additional Past Medical History / Comment(s): chronic back, neck, shoulder pain History of Any Multi-Drug Resistant Organisms: None Reported Past Surgical History: No Surgical Hx Reported Past Anesthesia/Blood Transfusion Reactions: No Reported Reaction Past Psychological History: No Psychological Hx Reported Smoking Status: Current every day smoker Past Alcohol Use History: None Reported Past Drug Use History: Marijuana - Past Family History Mother Family Medical History: Cancer Additional Family Medical History / Comment(s): Lung Cancer Father Family Medical History: Congestive Heart Failure (CHF), Dementia Additional Family Medical History / Comment(s): Bipolar Medications and Allergies Home Medications Medication Instructions Recorded Confirmed Type Gabapentin [Neurontin] 300 mg PO TID 12/06/16 11/21/17 History Lisinopril [Zestril] 2.5 mg PO DAILY 12/06/16 11/21/17 History oxyCODONE-APAP 10-325MG [Percocet 1 tab PO Q6HR PRN 12/06/16 11/21/17 History 10-325 mg] rOPINIRole HCL [Requip] 0.5 mg PO HS 12/06/16 11/21/17 History tiZANidine HCL [Zanaflex] 4 mg PO TID 12/06/16 11/21/17 History Albuterol Sulfate [Proventil Hfa] 2 puff INHALATION QID #1 inhaler 12/08/1611/29 Rx Ipratropium [place] [Atrovent Hfa] 2 puff INHALATION QID #1 inhaler 12/08/1611/29 Rx Nicotine 21Mg/24Hr Patch [Habitrol] 1 patch TRANSDERM DAILY #30 patch 12/08/16 11/21/17 Rx Ibuprofen 800 mg PO TID 11/21/17 11/21/17 History Allergies Allergy/AdvReac Type Severity Reaction Status Date / Time Penicillins Allergy Unknown Verified 11/21/17 23:12 Surgical - Exam Vital Signs Temp Pulse Resp BP Pulse Ox 99.1 F 79 18 167/106 99 11/21/17 21:50 11/21/17 21:50 11/21/17 21:50 11/21/17 21:50 11/21/17 21:50 - General moderate pain - Eyes PERRL, normal ocular movement - ENT no hearing loss - Neck 2 cm x 3 cm mass of the anterior neck associated with the mandible slightly right of midline. Has a pointing area approximately 1 cm x 1 cm with some redness and loss of hair. No purulent drainage at this time. Assessment and Plan Assessment: Osteomyelitis of the mandible with associated swelling. Plan: At this point are awaiting infectious disease consult a culture was done through the pointing area under his jaw approximately 4 mL of brown yellow purulent discharge was removed and sent for aerobic anaerobic cultures and sensitivities Time with Patient: Greater than 30
[2017-11-22 15:42] LABS: Basophils % (A) 0 %; Eosinophils # (A) 0.2 k/uL (0-0.7); Eosinophils % (A) 1 %; HCT 35.1 % (39.0-53.0); HGB 11.9 gm/dL (13.0-17.5); Lymphocytes # (A) 1.7 k/uL (1.0-4.8); Lymphocytes % (A) 9 %; MCHC 33.7 g/dL (31.0-37.0); MCV 94.9 fL (80.0-100.0); Mean Platelet Volume 6.9; Monocytes # (A) 1.8 k/uL (0-1.0); Monocytes % (A) 10 %; Neutrophils # (A) 13.8 k/uL (1.3-7.7); Neutrophils % (A) 77 %; Platelet Count 274 k/uL (150-450); RDW 12.5 % (11.5-15.5); WBC 17.9 k/uL (3.8-10.6)
[2017-11-22 15:50] LABS: Anion Gap 8 mmol/L; Blood Urea Nitrogen 5 mg/dL (9-20); Calcium 8.9 mg/dL (8.4-10.2); Carbon Dioxide 24 mmol/L (22-30); Chloride 107 mmol/L (98-107); Glucose 118 mg/dL (74-99); Potassium 3.6 mmol/L (3.5-5.1); Sodium 139 mmol/L (137-145)
[2017-11-22] MEDS ORDERED: VANCOMYCIN 1,000 MG in SODIUM CHLORIDE 0.9% 250 ML IVPB ONE (16:00)
[2017-11-22] MEDS: cefTRIAXone 2,000 MG in SODIUM CHLORIDE 0.9% 100 ML IVPB SCH (16:37)
[2017-11-22] MEDS: IPRATROPIUM-ALBUTEROL 3 ML NEB INHALATION SCH (21:08)
[2017-11-22] MEDS ORDERED: NAPROXEN 250 MG TAB PO SCH (22:00)
[2017-11-22] MEDS: VANCOMYCIN 1,000 MG in SODIUM CHLORIDE 0.9% 250 ML IVPB SCH (23:20)
[2017-11-22] MEDS: ENOXAPARIN 40 MG/0.4 ML SYRINGE SQ SCH (23:21)
--- NOTE | 2017-11-22 23:32 | HP ---
HISTORY AND PHYSICAL DATE OF ADMISSION: 11/21/2017. DATE OF SERVICE: 11/22/2017. PRESENTING COMPLAINT: Swollen painful right jaw. HISTORY OF PRESENTING COMPLAINT: This is a 47-year-old patient of Dr. Chang, the patient's chronic stable medical conditions include COPD, hypertension, chronic arthritis. The patient, in July of last year, had gone to [place] dentist and had teeth extracted and then had dentures placed. The patient's gums became raw to the point they started hurting. The patient went and saw Dr. Taylor 2 weeks ago and patient described the jaw had to be chiseled. Subsequently, the patient in the last 4 days, started having more pain and swelling of the right lower jaw. There was no obvious fevers or chills. The patient presented to [facility] ER from where they called me. I did speak to Dr. Taylor about the patient and, given that he did not have privileges there, in patient's best interest I did make the patient a direct admission here to [facility]. CT scan done there did show lucency in the jaw bone. Earlier today Dr. Taylor was able to drain some pus, about 4 mL of brown-yellow purulent discharge was obtained. The patient is also a long-standing smoker. Had a white count, there was suspicion for osteomyelitis. The patient was started on IV ceftriaxone and vancomycin. REVIEW OF SYSTEMS: CONSTITUTIONAL: Tired. HEENT: As above. RESPIRATORY: Some wheezing and cough. CARDIOVASCULAR: None. GENITOURINARY: None. MUSCULOSKELETAL: Arthritic pain in multiple joints. DERMATOLOGICAL, HEMATOLOGIC, LYMPHATIC: None. PSYCHIATRY: Some anxiety. NEUROLOGIC: None. PAST MEDICAL HISTORY: COPD, hypertension, chronic back and neck pain, shoulder pain. PAST SURGICAL HISTORY: Dental work. SOCIAL HISTORY: Smokes about a pack a day. Also smokes marijuana. Does some factory work. Lives with girlfriend. Alcohol occasionally. FAMILY HISTORY: Lung cancer. HOME MEDICATIONS: 1. Ibuprofen 800 mg t.i.d. 2. Zanaflex 4 mg p.o. t.i.d. 3. Requip 0.5 mg at bedtime. 4. Percocet 10 1 tab every 6 hours p.r.n. 5. Nicotine 20 mg patch. 6. Zestril 2.5 mg a day. 7. Atrovent HFA 2 puffs q.i.d. 8. Neurontin 300 mg t.i.d. 9. Albuterol 2 puffs q.i.d. ALLERGIES: PENICILLIN. PHYSICAL EXAMINATION: Vital signs on presentation, temperature 99.9, pulse 87, respirations 18, blood pressure 159/94, pulse 96% on room air. GENERAL APPEARANCE: Thin built. BMI 17. Lying in bed, tired-appearing, somewhat unkempt. EYES: Pupils equal. Conjunctivae normal. HEENT: External nose normal. Oral cavity, the patient has swelling of the right jaw. Some tenderness. NECK: JVD not raised. Mass not palpable. Respiratory effort increased. LUNGS: Diminished breath sounds, prolonged expiration and wheezing. CARDIOVASCULAR: 1st and 2nd sounds normal. No edema. ABDOMEN: Soft, nontender. Liver and spleen not palpable. LYMPHATIC: No lymph nodes palpable in the neck, axillae or groin. PSYCHIATRY: Alert and oriented x3. Mood and affect anxious appearing. NEUROLOGICAL: Pupils equal. Cranial nerves grossly intact. MUSCULOSKELETAL: Some pain in the cervical area. INVESTIGATIONS: White count 17.9, hemoglobin 11.9, increased neutrophils. Potassium 3.6, BUN 5, creatinine 0.49. BMI 17.8. The patient's CT scan from [facility] shows lucency. ASSESSMENT: 1. This is a patient who presents with right jaw pain, swelling, pus was drained, leukocytosis, strongly suspicious for osteomyelitis due to infected . He had 4 mL of pus removed by Dr. arguello. The patient is currently started on IV antibiotics. The patient probably needs long-term antibiotics. 2. Chronic obstructive pulmonary disease in a current smoker. 3. Essential hypertension. 4. Primary osteoarthritis. 5. Chronic nicotine use. Patient is a cigarette smoker. 6. Recreational marijuana use. 7. Protein calorie malnutrition, mild, from decreased oral intake. PLAN: Patient is currently on vancomycin, ceftriaxone, Lovenox for DVT prophylaxis. We will also start the patient on DuoNeb, IV fluids. I did talk to Dr. Taylor who will review the patient again on Sunday to see if he will need any further surgical intervention done. Did also speak to Dr. Walters. The patient will need a PICC line for long-term antibiotics. Further course will be determined by how patient responds clinically. Care was discussed with the patient. MMODL / IJN: [id number] /
[2017-11-23] MEDS: oxyCODONE-APAP 10-325MG 1 EACH TAB PO PRN ×4 (05:55→23:59)
[2017-11-23] MEDS: KETOROLAC 30 MG/ML 1 ML VIAL IVP SCH ×3 (05:55→21:43)
[2017-11-23] MEDS: LACTATED RINGERS 1,000 ML IV SCH ×2 (05:56→13:11)
[2017-11-23] MEDS: ENOXAPARIN 40 MG/0.4 ML SYRINGE SQ SCH (08:45)
[2017-11-23] MEDS: VANCOMYCIN 1,000 MG in SODIUM CHLORIDE 0.9% 250 ML IVPB SCH ×3 (08:45→23:59)
[2017-11-23] MEDS: tiZANidine 4 MG TAB PO SCH ×3 (08:46→21:43)
[2017-11-23] MEDS: NICOTINE 21MG/24HR PATCH TRANSDERM SCH (08:46)
[2017-11-23] MEDS: LISINOPRIL 2.5 MG TAB PO SCH (08:46)
[2017-11-23] MEDS: GABAPENTIN 300 MG CAP PO SCH ×3 (08:46→21:43)
[2017-11-23] MEDS: IPRATROPIUM-ALBUTEROL 3 ML NEB INHALATION SCH ×4 (08:52→19:50)
--- NOTE | 2017-11-23 09:16 | XR ---
EXAMINATION TYPE: XR chest 2V DATE OF EXAM: 11/23/2017 COMPARISON: None TECHNIQUE: PA and lateral views submitted. HISTORY: COPD FINDINGS: The lungs are clear and there is no pneumothorax, pleural effusion, or focal pneumonia. Arthropathy of the shoulder. Hypertrophic change of the spine. There is hyperinflation. IMPRESSION: 1. No acute process. Hyperinflation suggests asthma or COPD. Correlate clinically.
[2017-11-23 10:14] LABS: Basophils % (A) 0 %; Eosinophils # (A) 0.3 k/uL (0-0.7); Eosinophils % (A) 2 %; HCT 33.3 % (39.0-53.0); HGB 11.1 gm/dL (13.0-17.5); Lymphocytes % (A) 12 %; MCH 31.9 pg (25.0-35.0); MCHC 33.3 g/dL (31.0-37.0); MCV 95.8 fL (80.0-100.0); Mean Platelet Volume 7.8; Monocytes # (A) 1.6 k/uL (0-1.0); Monocytes % (A) 10 %; Neutrophils # (A) 12.2 k/uL (1.3-7.7); Neutrophils % (A) 75 %; Platelet Count 270 k/uL (150-450); RBC 3.47 m/uL (4.30-5.90); RDW 12.6 % (11.5-15.5); WBC 16.4 k/uL (3.8-10.6)
[2017-11-23 10:30] LABS: Anion Gap 8 mmol/L; Blood Urea Nitrogen 5 mg/dL (9-20); Calcium 8.5 mg/dL (8.4-10.2); Carbon Dioxide 25 mmol/L (22-30); Chloride 107 mmol/L (98-107); Glucose 84 mg/dL (74-99); Sodium 140 mmol/L (137-145)
--- NOTE | 2017-11-23 11:24 | CONS ---
CONSULTATION DATE OF SERVICE: 11/22/2017 REASON FOR CONSULTATION: Right lower jaw abscess. HISTORY OF PRESENT ILLNESS: The patient is a 47-year-old male who did have all his teeth removed and treated about a month and a half ago. Patient recently did have bilateral mandibular kaelyn removal under IV sedation: About a week ago and patient back home the patient subsequently started having pain and swelling of the right lower jaw area that has been going on for about 4 days, the area becoming more swollen, red and painful. Pain described as throbbing almost 7 to 8/10, and no radiation. The patient denies any difficulty swallowing. He did have some chills, denies high-grade fever. No nausea, vomiting. No abdominal pain or any diarrhea. With these symptoms, the patient did present initially to the [facility] ER with the patient did have a CT of the maxillofacial area, apparently having evidence of a possible abscess. The patient subsequently has been transferred to the [facility] to be evaluated by Dr. Taylor. Patient has been seen by Dr. Taylor this afternoon and the patient did have a needle aspiration of that area with more of the purulent material per the RN who assisted him. Culture has been obtained both aerobic and anaerobic. Patient was started on clindamycin because of his PENICILLIN allergy. Infectious Disease was consulted for further recommendation regarding antibiotic therapy. REVIEW OF SYSTEMS: CONSTITUTIONAL: Positive for weakness and chills. EYES: No complaint. ENT: As per HPI. RESPIRATORY: No complaint. CARDIOVASCULAR: No complaint. GENITOURINARY: No complaint. GASTROINTESTINAL: No complaint. MUSCULOSKELETAL: No complaint. INTEGUMENTARY: No complaint. PSYCHOLOGICAL: No complaint. NEUROLOGIC: No complaint. PAST MEDICAL HISTORY: COPD, hypertension, chronic back pain, shoulder pain. PAST SURGICAL HISTORY: Recent dental procedure as mentioned above. SOCIAL HISTORY: Current everyday smoker. Does admit to marijuana use. No drinking. FAMILY HISTORY: Mother with history of lung cancer. Father with history of bipolar disorder and dementia. ALLERGIES: PENICILLIN. He mentioned as a baby. Did not remember currently taking any PENICILLIN derivative. MEDICATION: Currently the patient is on DuoNeb, Lovenox, Neurontin, Toradol, lactated Ringer , Zestril, nicotine patch, Requip and clindamycin. PHYSICAL EXAMINATION: Blood pressure is 109/72 with a pulse of 74, temperature 98.4, he is 100% on room air. General description is a middle-aged male, lying in bed in no distress. No tachypnea or accessory muscle for respiration use. HEENT: Shows no pallor or scleral icterus. Oral mucosa is moist with no significant inflammation noticed on the floor of the oral cavity. NECK: the patient did have a painful lump on the right lower jaw area, was slightly fluctuant. Neck trachea central, no thyromegaly. LUNGS: Unlabored breathing and is clear to auscultation anteriorly. No wheeze or crackle. HEART: S1, S2. Regular rate and rhythm. ABDOMEN: Soft, no tenderness. No guarding or rigidity. EXTREMITIES: No edema of the feet. SKIN EXAMINATION: No rash or mass palpable. NEUROLOGICAL: Patient is awake, alert, oriented x3, mood and affect normal. LABS: Hemoglobin is 11.8, white count 17.9, BUN of 5, creatinine 0.49, cultures obtained currently pending. DIAGNOSTIC IMPRESSION AND PLAN: 1. Patient admitted to the hospital with right lower jaw abscess in a patient who did have recently planned procedure with removal of bilateral mandibular kaelyn with bone exposed concern for underlying osteomyelitis. The likely organism that need to cover be the oral david of the mouth. 2. Patient noted to have a PENICILLIN allergy that will limit the number of antibiotics that could be safe to use. PLAN: 1. Discontinue the clindamycin. 2. Start the patient on Rocephin 2 g daily. 3. Vancomycin, pharmacy to dose target of 15 while watching his kidney function closely. 4. Will follow up on clinical condition and culture to further adjust medication if needed. Thank you for this consultation. Will follow this patient with you. MMODL / IJN: [id number] / MTDD
--- NOTE | 2017-11-23 14:24 | PN ---
PROGRESS NOTE DATE OF SERVICE: 11/23/2017 PRESENTING COMPLAINT: Painful swollen right jaw. INTERVAL HISTORY: This patient recently had a tooth work done on the jaw and tooth extracted over a year ago. Presents with right lower mandible possible osteomyelitis with abscess. Some of this was drained, it started to swell again. He is on broad-spectrum antibiotics. Some pain is present. REVIEW OF SYSTEMS: Done for constitutional, cardiovascular, GI, pulmonary: Relevant findings as above. CURRENT MEDICATIONS: Current medications are reviewed and include vancomycin and IV ceftriaxone. PHYSICAL EXAMINATION: On examination, afebrile, pulse 92, respiratory 18, blood pressure 166/91, pulse ox 98% on room air. GENERAL APPEARANCE: Lying in bed, tired. EYES: Pupils equal. Conjunctivae pale. HENT: Swelling of the right lower jaw with some tenderness. NECK: JVD not raised. Mass not palpable. RESPIRATORY: Effort increased. LUNGS: Decreased breath sounds. Prolonged expiration. CARDIOVASCULAR: First and second sounds normal. No edema. ABDOMEN: Soft, nontender. Liver and spleen not palpable. PSYCHIATRY: Alert and oriented x3. Mood and affect normal. Oral cavity also missing dentition. INVESTIGATIONS: White count 16.4. Potassium 4. BUN 5, creatinine 0.53. Wound cultures are pending. ASSESSMENT: 1. This is a patient with right lower jaw acute osteomyelitis with some tooth work recently done including abscess, some of which was drained, slow to respond. 2. Chronic obstructive pulmonary disease in a current smoker. 3. Essential hypertension. 4. Primary osteoarthritis. 5. Chronic nicotine use. Patient is a cigarette smoker. 6. Recreational marijuana use. 7. Mild protein-calorie malnutrition from decreased oral intake. PLAN: Will advance patient's diet to a full liquid diet. Dr. Taylor will re-evaluate the patient on Sunday to see if it needs to be drained. In the meantime, patient will be needing some long-term antibiotics. This was discussed with the patient. Will follow. MMODL / IJN: [id number] /
[2017-11-23] MEDS: cefTRIAXone 2,000 MG in SODIUM CHLORIDE 0.9% 100 ML IVPB SCH (16:16)
--- NOTE | 2017-11-24 00:03 | PN ---
PROGRESS NOTE DATE OF SERVICE: 11/23/2017. REASON FOR FOLLOWUP: Right lower jaw osteomyelitis and abscess. INTERVAL HISTORY: The patient is afebrile. He did mention that he did have reaccumulation of the fluid into the right lower jaw area. The patient denies having any chest pain, shortness of breath, cough or difficulty swallowing. No abdominal pain, no diarrhea. EXAMINATION: Blood pressure 141/72 with a pulse of 83, temperature 97.3. He is 99% on room air. GENERAL DESCRIPTION: A middle aged male up in the bed in no distress. HEENT: Examination of right lower joint did have swelling, slightly tender to touch. LUNGS: Unlabored breathing. Clear to auscultation anteriorly. HEART: S1, S2. Regular rate and rhythm. ABDOMEN: Soft. EXTREMITIES: No edema of the feet. LABS: Hemoglobin is 11.1, white count 16.4, BUN of 5, creatinine 0.53. Blood culture so far pending. The neck aspirate area cultures are currently pending. DIAGNOSTIC IMPRESSION AND PLAN: Patient with right-sided neck abscess, status post aspirate. We are waiting for the culture to finalize. The patient did have a penicillin allergy. Continue with vancomycin and Zosyn while waiting for the culture to finalize. Continue supportive care. MMODL / IJN: [id number] /
[2017-11-24] MEDS: LACTATED RINGERS 1,000 ML IV SCH ×3 (01:19→15:49)
[2017-11-24] MEDS: KETOROLAC 30 MG/ML 1 ML VIAL IVP SCH ×3 (05:56→22:36)
[2017-11-24 06:23] LABS: Basophils % (A) 0 %; Eosinophils # (A) 0.5 k/uL (0-0.7); Eosinophils % (A) 4 %; HCT 35.3 % (39.0-53.0); Lymphocytes # (A) 1.8 k/uL (1.0-4.8); Lymphocytes % (A) 15 %; MCH 30.5 pg (25.0-35.0); MCHC 31.2 g/dL (31.0-37.0); MCV 97.9 fL (80.0-100.0); Monocytes % (A) 8 %; Neutrophils # (A) 8.7 k/uL (1.3-7.7); Neutrophils % (A) 70 %; Platelet Count 292 k/uL (150-450); RBC 3.61 m/uL (4.30-5.90); RDW 12.7 % (11.5-15.5); WBC 12.4 k/uL (3.8-10.6)
[2017-11-24] MEDS: oxyCODONE-APAP 10-325MG 1 EACH TAB PO PRN ×3 (06:26→20:53)
[2017-11-24 06:42] LABS: Anion Gap 7 mmol/L; Carbon Dioxide 22 mmol/L (22-30); Chloride 110 mmol/L (98-107); Glucose 99 mg/dL (74-99); Sodium 139 mmol/L (137-145)
[2017-11-24 06:48] LABS: Blood Urea Nitrogen 7 mg/dL (9-20); Potassium 4.3 mmol/L (3.5-5.1)
[2017-11-24] MEDS ORDERED: VANCOMYCIN TROUGH DUE 1 EACH MISC MISCELLANE ONE (07:00)
[2017-11-24] MEDS: LISINOPRIL 2.5 MG TAB PO SCH (07:44)
[2017-11-24] MEDS: tiZANidine 4 MG TAB PO SCH ×3 (07:44→20:53)
[2017-11-24] MEDS: NICOTINE 21MG/24HR PATCH TRANSDERM SCH (07:44)
[2017-11-24] MEDS: VANCOMYCIN 1,000 MG in SODIUM CHLORIDE 0.9% 250 ML IVPB SCH (07:44)
[2017-11-24] MEDS: GABAPENTIN 300 MG CAP PO SCH ×3 (07:44→20:53)
[2017-11-24] MEDS: ENOXAPARIN 40 MG/0.4 ML SYRINGE SQ SCH (07:45)
[2017-11-24] MEDS: IPRATROPIUM-ALBUTEROL 3 ML NEB INHALATION SCH ×4 (09:22→19:47)
--- NOTE | 2017-11-24 14:12 | P.PN ---
Subjective Progress Note Date: 11/24/17 Principal diagnosis: right lower jaw acute osteomyelitis Mr. Lowe is a 47-year-old male with a past medical history of hypertension and osteoarthritis coming into the hospital with the chief complaints of right lower jaw swelling.Patient had tooth extraction done over one year ago and recently he started to have some pain and swelling in the right lower mandible that worsened and so he came into the hospital for further evaluation and treatment. Patient is currently being treated for osteomyelitis of his lower jaw with broad-spectrum antibiotics. Today the patient is lying in bed appears to be in no acute distress he does not have any active ongoing complaints except for the mild pain in his right lower jaw. On review of systems - constitutional-no fevers chills or rigors Cardiovascular-no chest pain or palpitations Respiratory-no cough or difficulty in breathing GI-no abdominal pain nausea vomiting or diarrhea -no dysuria or hematuria Patient's medications have been reviewed. Objective - Vital Signs Vital signs: Vital Signs Temp 98.6 F 11/24/17 05:40 Pulse 90 11/24/17 09:35 Resp 20 11/24/17 05:40 BP 132/89 11/24/17 05:40 Pulse Ox 97 11/24/17 05:40 Intake & Output 11/23/17 11/24/17 11/24/17 18:59 06:59 18:59 Intake Total 600 Balance 600 Intake: Oral 600 Other: # Voids 2 2 - Exam GENERAL EXAM GEN. APPEARANCE: alert, in no apparent distress HEAD EXAM: swelling of the right lower jaw with abscess that is 3 x 4 cm on palpation. NECK EXAM: normal inspection. Absent: tenderness, meningismus, full ROM, lymphadenopathy RESPIRATORY EXAM: normal lung sounds bilaterally. Absent: respiratory distress , wheezes, rales, rhonchi, stridor CARDIOVASCULAR EXAM: regular rate, normal rhythm, normal heart sounds. Absent : systolic murmur, diastolic murmur, rubs, gallop, clicks GI/ABDOMINAL EXAM: soft, normal bowel sounds. Absent: distended, tenderness, guarding, rebound, rigid EXTREMITIES EXAM: normal inspection, full ROM, normal capillary refill. Absent : tenderness, pedal edema, joint swelling, calf tenderness BACK EXAM: normal inspection NEUROLOGICAL EXAM: alert, oriented X3,no focal neurological deficits PSYCHIATRIC EXAM: normal affect, normal mood SKIN EXAM: warm, dry, intact, normal color. Absent: rash - Labs CBC & Chem 7: 11/24/17 06:08 11/24/17 06:08 Labs: Abnormal Lab Results - Last 24 Hours (Table) 11/23/17 11/23/17 11/24/17 Range/Units 08:46 08:46 06:08 WBC 16.4 H (3.8-10.6) k/uL RBC 3.47 L (4.30-5.90) m/uL Hgb 11.1 L (13.0-17.5) gm/dL Hct 33.3 L (39.0-53.0) % Neutrophils # 12.2 H (1.3-7.7) k/uL Monocytes # 1.6 H (0-1.0) k/uL Chloride 110 H (98-107) mmol/L BUN 5 L 7 L (9-20) mg/dL Creatinine 0.53 L 0.52 L (0.66-1.25) mg/dL 11/24/17 Range/Units 06:08 WBC 12.4 H (3.8-10.6) k/uL RBC 3.61 L (4.30-5.90) m/uL Hgb 11.0 L (13.0-17.5) gm/dL Hct 35.3 L (39.0-53.0) % Neutrophils # 8.7 H (1.3-7.7) k/uL Monocytes # (0-1.0) k/uL Chloride (98-107) mmol/L BUN (9-20) mg/dL Creatinine (0.66-1.25) mg/dL Microbiology - Last 24 Hours (Table) 11/22/17 15:10 Blood Culture - Preliminary Blood No Growth after 24 hours 11/22/17 15:31 Blood Culture - Preliminary Blood No Growth after 24 hours 11/22/17 13:45 Gram Stain - Preliminary Mandible - Right Wound Culture - Preliminary Assessment and Plan Assessment: ASSESSMENT Right lower jaw acute osteomyelitis - with recent dental work COPD essential hypertension Primary osteoarthritis chronic nicotine dependence Mild protein calorie malnutrition from decreased by mouth intake Plan:patient has been started on vancomycin and Zosyn as per ID Dr. Walters's recommendations.awaiting reevaluation by Dr. Taylor on Sunday morning to see if he needs drainage.Patient will be continued on current antibiotics and current medication regimen for now.
[2017-11-24] MEDS: cefTRIAXone 2,000 MG in SODIUM CHLORIDE 0.9% 100 ML IVPB SCH (15:49)
[2017-11-24] MEDS: VANCOMYCIN 1,250 MG in SODIUM CHLORIDE 0.9% 250 ML IVPB SCH ×2 (17:08→23:37)
--- NOTE | 2017-11-24 23:19 | PN ---
PROGRESS NOTE DATE OF SERVICE: 11/24/2017. REASON FOR FOLLOWUP: Right side of the neck, possible abscess. INTERVAL HISTORY: The patient is currently afebrile. Denies having any chest pain, shortness of breath or cough. No difficulty swallowing. No abdominal pain. No diarrhea. Still complaining of pain to the area of swelling. EXAMINATION: Blood pressure is 117/79 with a pulse of 87, temperature 98.5. He is 98% on room air. GENERAL DESCRIPTION: A middle aged male up in the bed in no distress. HEENT: Neck area swelling persists slightly. LUNGS: Unlabored breathing. Clear to auscultation anteriorly. HEART: S1, S2. Regular rate and rhythm. No tenderness. LABS: Hemoglobin is 11, white count 12.4, BUN of 7, creatinine 0.5. Culture has been negative so far. DIAGNOSTIC IMPRESSION AND PLAN: Patient with right-sided neck swelling with concern for possible abscess. The patient did have recent history of dental surgery with a question of possible hematoma. Culture has been negative so far. Currently covered with vancomycin and Rocephin. Did have reaccumulation of the fluid collection, may benefit from further aspiration or drainage. Continue supportive care. MMODL / IJN: [id number] /
[2017-11-25] MEDS: LACTATED RINGERS 1,000 ML IV SCH ×3 (02:28→12:46)
[2017-11-25] MEDS: KETOROLAC 30 MG/ML 1 ML VIAL IVP SCH ×3 (05:20→21:40)
[2017-11-25] MEDS: oxyCODONE-APAP 10-325MG 1 EACH TAB PO PRN ×3 (06:15→18:09)
[2017-11-25 07:32] LABS: Anion Gap 8 mmol/L; Blood Urea Nitrogen 10 mg/dL (9-20); Calcium 8.9 mg/dL (8.4-10.2); Carbon Dioxide 21 mmol/L (22-30); Chloride 112 mmol/L (98-107); Glucose 87 mg/dL (74-99); Potassium 4.4 mmol/L (3.5-5.1); Sodium 141 mmol/L (137-145)
[2017-11-25] MEDS: IPRATROPIUM-ALBUTEROL 3 ML NEB INHALATION SCH ×4 (07:42→19:32)
[2017-11-25] MEDS: GABAPENTIN 300 MG CAP PO SCH ×3 (07:56→21:39)
[2017-11-25] MEDS: NICOTINE 21MG/24HR PATCH TRANSDERM SCH (07:56)
[2017-11-25] MEDS: VANCOMYCIN 1,250 MG in SODIUM CHLORIDE 0.9% 250 ML IVPB SCH ×2 (07:57→16:45)
[2017-11-25] MEDS: ENOXAPARIN 40 MG/0.4 ML SYRINGE SQ SCH (07:57)
[2017-11-25] MEDS: tiZANidine 4 MG TAB PO SCH ×3 (07:57→21:39)
[2017-11-25] MEDS: LISINOPRIL 2.5 MG TAB PO SCH (07:57)
[2017-11-25] MEDS: cefTRIAXone 2,000 MG in SODIUM CHLORIDE 0.9% 100 ML IVPB SCH (15:50)
--- NOTE | 2017-11-25 16:19 | P.PN ---
Subjective Progress Note Date: 11/25/17 Principal diagnosis: right lower jaw acute osteomyelitis Mr. Lowe is a 47-year-old male with a past medical history of hypertension and osteoarthritis coming into the hospital with the chief complaints of right lower jaw swelling.Patient had tooth extraction done over one year ago and recently he started to have some pain and swelling in the right lower mandible that worsened and so he came into the hospital for further evaluation and treatment. Patient is currently being treated for osteomyelitis of his lower jaw with broad-spectrum antibiotics. Today the patient is lying in bed appears to be in no acute distress . Patient states that his abscess bursted out last night with a lot of pus draining from it. He states his pain is much better after the abscess self drained. On review of systems - constitutional-no fevers chills or rigors Cardiovascular-no chest pain or palpitations Respiratory-no cough or difficulty in breathing GI-no abdominal pain nausea vomiting or diarrhea -no dysuria or hematuria Patient's medications have been reviewed. Objective - Vital Signs Vital signs: Vital Signs Temp 97.7 F 11/25/17 05:58 Pulse 89 11/25/17 11:28 Resp 16 11/25/17 08:00 BP 138/94 11/25/17 05:58 Pulse Ox 97 11/25/17 05:58 Intake & Output 11/24/17 11/25/17 11/25/17 18:59 06:59 18:59 Intake Total 1800 Balance 1800 Intake: Oral 1800 Other: # Voids 1 1 # Bowel Movements 1 - Exam GENERAL EXAM GEN. APPEARANCE: alert, in no apparent distress HEAD EXAM: swelling of the right lower jaw with abscess that is much less compared to yesterday NECK EXAM: normal inspection. Absent: tenderness, meningismus, full ROM, lymphadenopathy RESPIRATORY EXAM: normal lung sounds bilaterally. Absent: respiratory distress , wheezes, rales, rhonchi, stridor CARDIOVASCULAR EXAM: regular rate, normal rhythm, normal heart sounds. Absent : systolic murmur, diastolic murmur, rubs, gallop, clicks GI/ABDOMINAL EXAM: soft, normal bowel sounds. Absent: distended, tenderness, guarding, rebound, rigid EXTREMITIES EXAM: normal inspection, full ROM, normal capillary refill. Absent : tenderness, pedal edema, joint swelling, calf tenderness BACK EXAM: normal inspection NEUROLOGICAL EXAM: alert, oriented X3,no focal neurological deficits PSYCHIATRIC EXAM: normal affect, normal mood SKIN EXAM: warm, dry, intact, normal color. Absent: rash - Labs CBC & Chem 7: 11/24/17 06:08 11/25/17 06:27 Labs: Abnormal Lab Results - Last 24 Hours (Table) 11/25/17 Range/Units 06:27 Chloride 112 H (98-107) mmol/L Carbon Dioxide 21 L (22-30) mmol/L Creatinine 0.54 L (0.66-1.25) mg/dL Microbiology - Last 24 Hours (Table) 11/22/17 15:10 Blood Culture - Preliminary Blood No Growth after 48 hours 11/22/17 15:31 Blood Culture - Preliminary Blood No Growth after 48 hours 11/22/17 13:45 Gram Stain - Final Mandible - Right Wound Culture - Final Assessment and Plan Assessment: ASSESSMENT Right lower jaw acute osteomyelitis - with recent dental work COPD essential hypertension Primary osteoarthritis chronic nicotine dependence Mild protein calorie malnutrition from decreased by mouth intake Plan:patient has been started on vancomycin and Zosyn as per ID Dr. Walters's recommendations.awaiting reevaluation by Dr. Taylor on Sunday morning to see if he needs drainage.Patient will be continued on current antibiotics and current medication regimen for now. Anticipate discharge in the next 24 hours.
[2017-11-25] MEDS: metroNIDAZOLE 500 MG TAB PO SCH ×2 (18:09→22:44)
[2017-11-26] MEDS: oxyCODONE-APAP 10-325MG 1 EACH TAB PO PRN ×4 (00:09→18:16)
--- NOTE | 2017-11-26 00:35 | PN ---
PROGRESS NOTE DATE OF SERVICE: 11/25/2017. REASON FOR FOLLOWUP: abscess and cellulitis. INTERVAL HISTORY: The patient is currently afebrile. The patient did mention that the swelling he has on the lower jaw has drainage of purulent material. Overall swelling and redness and pain has improved. Denies having any chest pain, shortness of breath, cough. No abdominal pain or any diarrhea. EXAMINATION: Blood pressure 97/64 with a pulse of 79, temperature of 98. He is 98% on room air. General description is a middle aged male up in the bed in no distress. HEENT examination: The neck area, swelling and redness has decreased. No drainage. Lungs unlabored breathing clear to auscultation anteriorly. Heart S1, S2. Regular rate and rhythm. ABDOMEN: Soft, no tenderness. LABS: BUN of 10, creatinine 0.54. No CBC was done today. The mandible culture showing anaerobic gram-negative bacilli. DIAGNOSTIC IMPRESSION AND PLAN: Patient with right mandible abscess status post needle aspirate and subsequently culture has been anaerobic gram-negative bacilli. Flagyl has been added. Continue with Rocephin as no MRSA has been noted. Discontinue the vancomycin. Continue supportive care. MMODL / IJN: [id number] /
[2017-11-26] MEDS: KETOROLAC 30 MG/ML 1 ML VIAL IVP SCH ×3 (05:25→23:24)
[2017-11-26] MEDS ORDERED: VANCOMYCIN TROUGH DUE 1 EACH MISC MISCELLANE ONE (07:00)
[2017-11-26] MEDS: GABAPENTIN 300 MG CAP PO SCH ×3 (07:55→23:26)
[2017-11-26] MEDS: tiZANidine 4 MG TAB PO SCH ×3 (07:55→23:26)
[2017-11-26] MEDS: NICOTINE 21MG/24HR PATCH TRANSDERM SCH (07:55)
[2017-11-26] MEDS: LISINOPRIL 2.5 MG TAB PO SCH (07:55)
[2017-11-26] MEDS: ENOXAPARIN 40 MG/0.4 ML SYRINGE SQ SCH (07:56)
[2017-11-26 08:11] LABS: Anion Gap 5 mmol/L; Blood Urea Nitrogen 12 mg/dL (9-20); Calcium 9.1 mg/dL (8.4-10.2); Carbon Dioxide 26 mmol/L (22-30); Chloride 111 mmol/L (98-107); Glucose 92 mg/dL (74-99); Potassium 4.5 mmol/L (3.5-5.1); Sodium 142 mmol/L (137-145)
[2017-11-26] MEDS: IPRATROPIUM-ALBUTEROL 3 ML NEB INHALATION SCH ×4 (08:11→19:14)
[2017-11-26 08:23] LABS: Basophils # (A) 0.1 k/uL (0-0.2); Basophils % (A) 1 %; Eosinophils # (A) 0.4 k/uL (0-0.7); Eosinophils % (A) 4 %; HGB 11.6 gm/dL (13.0-17.5); Lymphocytes % (A) 22 %; MCH 31.8 pg (25.0-35.0); MCHC 33.2 g/dL (31.0-37.0); MCV 95.6 fL (80.0-100.0); Mean Platelet Volume 7.2; Monocytes # (A) 0.8 k/uL (0-1.0); Monocytes % (A) 8 %; Neutrophils # (A) 5.9 k/uL (1.3-7.7); Neutrophils % (A) 63 %; Platelet Count 339 k/uL (150-450); RBC 3.67 m/uL (4.30-5.90); RDW 12.7 % (11.5-15.5); WBC 9.4 k/uL (3.8-10.6)
[2017-11-26] MEDS: metroNIDAZOLE 500 MG TAB PO SCH ×3 (09:13→23:25)
[2017-11-26] MEDS: LACTATED RINGERS 1,000 ML IV SCH (11:49)
[2017-11-26] MEDS: IPRATROPIUM 0.5 MG/2.5 ML NEBU INHALATION SCH (12:08)
--- NOTE | 2017-11-26 13:45 | P.PN ---
Subjective Progress Note Date: 11/26/17 Principal diagnosis: Osteo Mylitis of Anterior Mandible up in bed eating well. report abcess burst this weekend with copious pus and releaf of some pain. comfortable now Objective - Vital Signs Vital signs: Vital Signs Temp 97.8 F 11/26/17 05:34 Pulse 82 11/26/17 12:00 Resp 16 11/26/17 08:00 BP 131/91 11/26/17 05:34 Pulse Ox 99 11/26/17 05:34 Intake & Output 11/25/17 11/26/17 11/26/17 18:59 06:59 18:59 Intake Total 1200 Balance 1200 Intake: Oral 1200 Other: Voiding Method Toilet # Voids 1 2 1 - Exam 1cm weeping wound right mandible. minimal pus. swelling much improved from , but still has firmness in area. intra oral normal no swelling of pain - Labs CBC & Chem 7: 11/26/17 07:41 11/26/17 07:41 Labs: Abnormal Lab Results - Last 24 Hours (Table) 11/26/17 11/26/17 Range/Units 07:41 07:41 RBC 3.67 L (4.30-5.90) m/uL Hgb 11.6 L (13.0-17.5) gm/dL Hct 35.0 L (39.0-53.0) % Chloride 111 H (98-107) mmol/L Creatinine 0.58 L (0.66-1.25) mg/dL Microbiology - Last 24 Hours (Table) 11/22/17 15:10 Blood Culture - Preliminary Blood No Growth after 72 hours 11/22/17 15:31 Blood Culture - Preliminary Blood No Growth after 72 hours 11/22/17 13:45 Anaerobic Culture - Preliminary Mandible - Right Anaerobic Gm Negative Bacilli Assessment and Plan (1) Osteomyelitis of mandible Current Visit: Yes Status: Acute Priority: High Onset Date: ~11/21/17 Code(s): M27.2 - INFLAMMATORY CONDITIONS OF JAWS SNOMED Code(s): 755008742 Plan: Spoke with I/D and due to osteomylitis diagnosis recomend IV abx therapy with outpatient follow up in 1 week. wound care discussed with nurse. Time with Patient: Less than 30
[2017-11-26] MEDS: cefTRIAXone 2,000 MG in SODIUM CHLORIDE 0.9% 100 ML IVPB SCH (15:54)
--- NOTE | 2017-11-26 15:56 | P.PN ---
Subjective Progress Note Date: 11/26/17 Principal diagnosis: Right lower jaw acute osteomyelitis Mr. Lowe is a 47-year-old male with a past medical history of hypertension and osteoarthritis coming into the hospital with the chief complaints of right lower jaw swelling.Patient had tooth extraction done over one year ago and recently he started to have some pain and swelling in the right lower mandible that worsened and so he came into the hospital for further evaluation and treatment. Patient is currently being treated for osteomyelitis of his lower jaw with broad-spectrum antibiotics. On 11/26/2017- patient is lying in bed appears to be no acute distress. Patient states his pain is much better since drainage of the pus. But he still continues to have pain and swelling. On review of systems - constitutional-no fevers chills or rigors Cardiovascular-no chest pain or palpitations Respiratory-no cough or difficulty in breathing GI-no abdominal pain nausea vomiting or diarrhea -no dysuria or hematuria Patient's medications have been reviewed- patient's vancomycin has been discontinued and he has been started on Flagyl yesterday. Objective - Vital Signs Vital signs: Vital Signs Temp 97.8 F 11/26/17 05:34 Pulse 93 11/26/17 15:46 Resp 16 11/26/17 08:00 BP 131/91 11/26/17 05:34 Pulse Ox 99 11/26/17 05:34 Intake & Output 11/25/17 11/26/17 11/26/17 18:59 06:59 18:59 Intake Total 1200 Balance 1200 Intake: Oral 1200 Other: Voiding Method Toilet # Voids 1 2 3 - Exam GENERAL EXAM GEN. APPEARANCE: alert, in no apparent distress HEAD EXAM: swelling of the right lower jaw with abscess that is much less compared to yesterday NECK EXAM: normal inspection. Absent: tenderness, meningismus, full ROM, lymphadenopathy RESPIRATORY EXAM: No wheeze or crackles.Breath sounds positive. CARDIOVASCULAR EXAM: S1-S2 heard. No additional sounds. GI/ABDOMINAL EXAM: soft, normal bowel sounds. Absent: distended, tenderness, guarding, rebound, rigid EXTREMITIES EXAM: No peripheral edema NEUROLOGICAL EXAM: alert, oriented X3,no focal neurological deficits PSYCHIATRIC EXAM: normal affect, normal mood SKIN EXAM: warm, dry, intact, normal color. Absent: rash - Labs CBC & Chem 7: 11/26/17 07:41 11/26/17 07:41 Labs: Abnormal Lab Results - Last 24 Hours (Table) 11/26/17 11/26/17 Range/Units 07:41 07:41 RBC 3.67 L (4.30-5.90) m/uL Hgb 11.6 L (13.0-17.5) gm/dL Hct 35.0 L (39.0-53.0) % Chloride 111 H (98-107) mmol/L Creatinine 0.58 L (0.66-1.25) mg/dL Microbiology - Last 24 Hours (Table) 11/22/17 13:45 Anaerobic Culture - Final Mandible - Right Prevotella melaninogenica 11/22/17 15:10 Blood Culture - Preliminary Blood No Growth after 72 hours 11/22/17 15:31 Blood Culture - Preliminary Blood No Growth after 72 hours Assessment and Plan Assessment: ASSESSMENT Right lower jaw acute osteomyelitis - with recent dental work COPD essential hypertension Primary osteoarthritis chronic nicotine dependence Mild protein calorie malnutrition from decreased by mouth intake Plan: Patient's antibiotics have been changed yesterday. His vancomycin has been discontinued and started on Flagyl. Dr. Taylor has evaluated the patient today. As per Dr. Walters's recommendations we'll monitor the patient until tomorrow to have the final recommendation regarding outpatient antibiotic therapy.
--- NOTE | 2017-11-26 21:54 | PN ---
PROGRESS NOTE DATE OF SERVICE: 11/26/2017. REASON FOR FOLLOWUP: Right lower jaw osteomyelitis with an abscess. INTERVAL HISTORY: The patient is currently afebrile. Still complains of pain to the right lower jaw area, more of a dull aching pain 3 to 4 out of 10, and no radiation. No nausea, vomiting. No difficulty swallowing or any diarrhea. EXAMINATION: Blood pressure 124/84 with a pulse of 83, temperature 98.4, he is 98% on room air. GENERAL DESCRIPTION: A middle-aged male up in the chair in no distress. HEENT: Right lower jaw area swelling and redness has decreased. LUNGS: Unlabored breathing. Clear to auscultation anteriorly. HEART: S1, S2. Regular rate and rhythm. ABDOMEN: Soft, no tenderness. LABS: Hemoglobin is 11.6, white count normalized to 9.4, BUN of 12, creatinine 0.58. DIAGNOSTIC IMPRESSION AND PLAN: Patient with right lower jaw abscess and osteomyelitis, status post drainage. Culture with anaerobic gram-negative bacilli. The patient's white count has normalized. The patient will get a PICC line to continue with IV ceftriaxone in addition to the oral Flagyl. Duration should be at least 6 weeks with close outpatient followup. Plan of care was discussed with the dental surgeon, Dr. Taylor, on the phone. Continue supportive care. MMODL / IJN: [id number] /
[2017-11-27] MEDS: oxyCODONE-APAP 10-325MG 1 EACH TAB PO PRN ×4 (00:22→16:48)
[2017-11-27] MEDS: KETOROLAC 30 MG/ML 1 ML VIAL IVP SCH ×2 (06:06→14:35)
[2017-11-27] MEDS: LACTATED RINGERS 1,000 ML IV SCH (06:07)
[2017-11-27] MEDS: GABAPENTIN 300 MG CAP PO SCH ×2 (07:52→16:35)
[2017-11-27] MEDS: ENOXAPARIN 40 MG/0.4 ML SYRINGE SQ SCH (07:52)
[2017-11-27] MEDS: tiZANidine 4 MG TAB PO SCH ×2 (07:52→16:35)
[2017-11-27] MEDS: metroNIDAZOLE 500 MG TAB PO SCH ×2 (07:53→16:34)
[2017-11-27] MEDS: NICOTINE 21MG/24HR PATCH TRANSDERM SCH (07:53)
[2017-11-27] MEDS: LISINOPRIL 2.5 MG TAB PO SCH (07:53)
[2017-11-27] MEDS: IPRATROPIUM-ALBUTEROL 3 ML NEB INHALATION SCH ×3 (08:02→16:49)
[2017-11-27] MEDS ORDERED: LIDOCAINE 1% (PF) 10MG/ML VIAL SQ ONE (08:47)
[2017-11-27 10:36] LABS: Anion Gap 7 mmol/L; Blood Urea Nitrogen 18 mg/dL (9-20); C Reactive Protein 10.9 mg/L (<10.0); Calcium 9.4 mg/dL (8.4-10.2); Carbon Dioxide 25 mmol/L (22-30); Chloride 109 mmol/L (98-107); Glucose 79 mg/dL (74-99); Potassium 4.3 mmol/L (3.5-5.1); Sodium 141 mmol/L (137-145)
--- NOTE | 2017-11-27 11:48 | IR ---
PICC LINE PLACEMENT: HISTORY: Infection requiring long-term antibiotic therapy PROCEDURE: Ultrasound and fluoroscopic guidance of PICC line placement. COMPLICATIONS: None ANESTHESIA: 1. 1% Lidocaine locally. FINDINGS/TECHNIQUE: The procedure was explained to the patient. The risks, complications, benefits and alternatives were discussed and any questions were answered. Informed consent was obtained. The patient was placed supine on the fluoroscopic table and prepped and draped in the usual sterile fas ion. Utilizing a 21 gauge needle and sonographic and fluoroscopic guidance, access in the vein was achieved and there is placement of a 0.018 guidewire. The vein is patent. A 4-F sheath was placed o oh the guidewire. The guidewire and dilator were removed and a 4-F. PICC line was placed through th e sheath with the tip at the level of the SVC. The sheath was removed, the catheter was flushed and sutured into position. The patient was stable throughout the procedure and remained stable upon disc harge from the Department of Radiology. The vein puncture was patent under ultrasound. A oconnor scale image was obtained to document patency of the vein punctured. All elements of the maximal barrier technique were utilized. FLUOROSCOPY TIME: 0.5 minutes and one image submitted. IMPRESSION: Successful PICC line placement under ultrasound and fluoroscopic guidance.
[2017-11-27 14:41] VITALS: BP 151/83; RESP 18; TEMP 98.5
[2017-11-27] MEDS ORDERED: cefTRIAXone 2,000 MG in SODIUM CHLORIDE 0.9% 100 ML IVPB SCH (16:00)
[2017-11-27 16:59] VITALS: PULSE 90
--- NOTE | 2017-11-27 17:25 | PN ---
PROGRESS NOTE DATE OF SERVICE: 11/27/2017. REASON FOR VISIT: Follow up right lower jaw abscess and osteomyelitis. INTERVAL HISTORY: The patient is currently afebrile. He did get his PICC line. Currently waiting for outpatient IV antibiotic . Denies any chest pain, shortness of breath, cough, no abdominal pain. No diarrhea. EXAMINATION: Blood pressure 151/83 with a pulse of 102, temperature 98.5. He is 98% on room air. General description is a middle aged male lying in bed in no distress. Examination of the HEENT lower jaw swelling and redness has improved. No drainage. Lungs unlabored breathing. Clear to auscultation anteriorly. Heart S1, S2. Regular rate and rhythm. Abdomen soft, no tenderness. LAB: Sedimentation rate 34 with a CRP of 10.9. DIAGNOSTIC IMPRESSION AND PLAN: Patient with right lower jaw abscess with underlying osteomyelitis . The patient at this time will be continued on Rocephin 2 g along with oral Flagyl penicillin for 4 to 6 weeks with weekly monitoring of CBC, BMP, sedimentation rate. Current sedimentation rate of 75, CRP of 10.9 and close outpatient followup. MMODL / IJN: [id number] /
--- NOTE | 2017-11-29 13:56 | CDI ---
Last Revision, January 2017 Documentation Clarification Form Date: 11/29/17 From: Ashley Andrea Samira Waite, Mail Handler Sorter Hours-8:30 am & 5 pm Db Admit Date: 11/21/2017 9:53:00 PM Patient Name: Pelon Lowe Visit Number: [id number] Discharge Date: 11/27/17 ATTENTION: The Clinical Documentation Specialists (CDI) and [facility] Coding Staff appreciate your assistance in clarifying documentation. Please respond to the clarification below the line at the bottom and electronically sign. The CDI & [facility] Coding staff will review the response and follow-up if needed. Please note: Queries are made part of the Legal Health Record. If you have any questions, please contact the author of this message via ITS. Devaughn Rowan MD Acute osteomyelitis of the mandible has been documented in the H&P, consults, and PNs. Clinical Indicators: 1.5 month ago had teeth removed, approx 1 week ago had bilateral mandibular kaelyn moved Labs: Prevotella melaninogenica, WBC-17.9, Neutrophils-13.8, CRP-10.9 X-Ray Results: CT showed lucency in the jaw bone Treatment: IV Vanco, IV Rocephin In your professional opinion, please specify the cause of the osteomyelitis: Infection due to surgery Not due to surgery Other (please specify): Infection, not sure if it is from surgery. AMANDAD
--- NOTE | 2017-12-16 18:57 | P.DS ---
Providers Date of admission: 11/21/17 21:53 Expected date of discharge: 11/27/17 Attending physician: Waqar Gary Consults: 11/21/17 22:28 Consult Physician Routine Consulting Provider: Layton Taylor Consult Reason/Comments: mandible abcess Do you want consulting provider notified?: Yes, Notify in am 11/21/17 22:30 Consult Physician Routine Consulting Provider: Suzanne Walters Consult Reason/Comments: mandible abcess Do you want consulting provider notified?: Yes, Notify in am Primary care physician: Diego Chang [facility] Course: Discharge diagnosis Right lower jaw acute osteomyelitis - with recent dental work COPD essential hypertension Primary osteoarthritis chronic nicotine dependence Mild protein calorie malnutrition from decreased by mouth intake Hospital course Mr. Lowe is a 47-year-old male with a past medical history of hypertension and osteoarthritis coming into the hospital with the chief complaints of right lower jaw swelling.Patient had tooth extraction done over one year ago and recently he started to have some pain and swelling in the right lower mandible that worsened and so he came into the hospital for further evaluation and treatment. Patient is currently being treated for osteomyelitis of his lower jaw with broad-spectrum antibiotics. On 11/26/2017- patient is lying in bed appears to be no acute distress. Patient states his pain is much better since drainage of the pus. But he still continues to have pain and swelling. 11/27/2017 Patient denied any complaints of chest pain or shortness of breath today. PICC line was placed and patient will be discharged home with antibiotics in the form of ceftriaxone and Flagyl as per ID recommendations. Otherwise patient is afebrile and is stable to be discharged home. Discharge physical examination was done and vitals reviewed. Patient Condition at Discharge: Good Plan - Discharge Summary New Discharge Prescriptions: New cefTRIAXone [Rocephin] 2,000 mg IVP Q24HR #42 syr metroNIDAZOLE [Flagyl] 500 mg PO TID #126 tab Continue Lisinopril [Zestril] 2.5 mg PO DAILY Gabapentin [Neurontin] 300 mg PO TID oxyCODONE-APAP 10-325MG [Percocet 10-325 mg] 1 tab PO Q6HR PRN PRN Reason: Pain tiZANidine HCL [Zanaflex] 4 mg PO TID rOPINIRole HCL [Requip] 0.5 mg PO HS Nicotine 21Mg/24Hr Patch [Habitrol] 1 patch TRANSDERM DAILY #30 patch Ibuprofen 800 mg PO TID No Action Ipratropium [place] [Atrovent Hfa] 2 puff INHALATION RT-QID Albuterol Sulfate [Proventil Hfa] 2 puff INHALATION RT-QID Discharge Medication List Gabapentin [Neurontin] 300 mg PO TID 12/06/16 [History] Lisinopril [Zestril] 2.5 mg PO DAILY 12/06/16 [History] oxyCODONE-APAP 10-325MG [Percocet 10-325 mg] 1 tab PO Q6HR PRN 12/06/16 [History ] rOPINIRole HCL [Requip] 0.5 mg PO HS 12/06/16 [History] tiZANidine HCL [Zanaflex] 4 mg PO TID 12/06/16 [History] Nicotine 21Mg/24Hr Patch [Habitrol] 1 patch TRANSDERM DAILY #30 patch 12/08/16 [ Rx] Ibuprofen 800 mg PO TID 11/21/17 [History] cefTRIAXone [Rocephin] 2,000 mg IVP Q24HR #42 syr 11/26/17 [Rx] metroNIDAZOLE [Flagyl] 500 mg PO TID #126 tab 11/27/17 [Rx] Albuterol Sulfate [Proventil Hfa] 2 puff INHALATION RT-QID 12/13/17 [History] Ipratropium [place] [Atrovent Hfa] 2 puff INHALATION RT-QID 12/13/17 [History] Follow up Appointment(s)/Referral(s): Layton Taylor DDS [STAFF PHYSICIAN] - 12/04/17 8:30 am () [facility], [NON-STAFF] - Diego Chagn DO [Primary Care Provider] - 1 Week (Office closed, please call for appointment.) [facility], [REFERRING] - As Needed Suzanne Walters MD [STAFF PHYSICIAN] - 12/04/17 (Please call for appointment, office currently closed. ) Patient Instructions/Handouts: Osteomyelitis (DC) Activity/Diet/Wound Care/Special Instructions: [facility] to deliver IV antibiotics to home this evening. No smoking, cessation information provided. Cardiac diet. Activity as tolerated. Discharge/Stand Alone Forms: Work/Release Restrictions Form Discharge Disposition: HOME WITH HOME HEALTH SERVICES
== END 2017-11-27 18:22 | disposition home health service (06) | DRG 158 ==
LOC: 4MS4W 21:53
PROVIDERS: ADMIT Hospitalist; ATTEND Hospitalist
PROC: 02HV33Z Insertion of Infusion Device into Superior Vena Cava, Percutaneous Approach (ICD-10-PCS; principal; 2017-11-27 08:35)
DX: M27.2 Inflammatory conditions of jaws (principal); E44.1 Mild protein-calorie malnutrition; L02.11 Cutaneous abscess of neck; L03.221 Cellulitis of neck; J44.9 Chronic obstructive pulmonary disease, unspecified; I10 Essential (primary) hypertension; M19.91 Primary osteoarthritis, unspecified site; G89.29 Other chronic pain; M54.9 Dorsalgia, unspecified; M54.2 Cervicalgia; M25.519 Pain in unspecified shoulder; Z71.6 Tobacco abuse counseling; F17.210 Nicotine dependence, cigarettes, uncomplicated; Z79.1 Long term (current) use of non-steroidal anti-inflammatories (NSAID); Z79.899 Other long term (current) drug therapy; Z88.0 Allergy status to penicillin; Z80.1 Family history of malignant neoplasm of trachea, bronchus and lung; Z82.49 Family history of ischemic heart disease and other diseases of the circulatory system; Z81.8 Family history of other mental and behavioral disorders
CPT/HCPCS: 36569; 71046; 76937; 77001; 80048; 80202; 85025; 85652; 86140; 87040; 87070; 87075; 87205; 94640

== ENCOUNTER 2017-12-13 11:45 | Emergency (ER) | payer OTHER ==
[2017-12-13 11:50] VITALS: RESP 18; TEMP 98.2
[2017-12-13 14:05] LABS: Basophils % (A) 0 %; Eosinophils # (A) 0.2 k/uL (0-0.7); Eosinophils % (A) 3 %; HGB 11.9 gm/dL (13.0-17.5); Lymphocytes # (A) 1.1 k/uL (1.0-4.8); Lymphocytes % (A) 13 %; MCH 31.3 pg (25.0-35.0); MCHC 32.2 g/dL (31.0-37.0); MCV 97.3 fL (80.0-100.0); Mean Platelet Volume 8.2; Monocytes # (A) 0.6 k/uL (0-1.0); Monocytes % (A) 7 %; Neutrophils # (A) 6.1 k/uL (1.3-7.7); Neutrophils % (A) 75 %; Platelet Count 183 k/uL (150-450); RDW 13.4 % (11.5-15.5); WBC 8.2 k/uL (3.8-10.6)
[2017-12-13 14:11] LABS: INR 1.1 (<1.2); Partial Thromboplastin Time 23.4 sec (22.0-30.0); Prothrombin Time 10.4 sec (9.0-12.0)
--- NOTE | 2017-12-13 14:12 | ED ---
Skin/Abscess/FB HPI - General Chief complaint: Skin/Abscess/Foreign Body Stated complaint: poss infection in LT arm Time Seen by Provider: 12/13/17 12:02 Source: patient, RN notes reviewed Mode of arrival: ambulatory Limitations: no limitations - History of Present Illness Initial comments: 47-year-old male presented emergency Department chief complaint of possible infection to his PICC line. Patient states it placed a few weeks ago for an infection in his jaw. Patient recent bandage change past week. He was evaluated today and felt that there was slightly swollen at the site him minimally red. Patient states that he does not have any increased pain no fever no chills no night sweats. Patient has a chest pain or shortness of breath. - Related Data Home Medications Medication Instructions Recorded Confirmed Gabapentin [Neurontin] 300 mg PO TID 12/06/16 12/13/17 Lisinopril [Zestril] 2.5 mg PO DAILY 12/06/16 12/13/17 oxyCODONE-APAP 10-325MG [Percocet 1 tab PO Q6HR PRN 12/06/16 12/13/17 10-325 mg] rOPINIRole HCL [Requip] 0.5 mg PO HS 12/06/16 12/13/17 tiZANidine HCL [Zanaflex] 4 mg PO TID 12/06/16 12/13/17 Ibuprofen 800 mg PO TID 11/21/17 12/13/17 Albuterol Sulfate [Proventil Hfa] 2 puff INHALATION RT-QID 12/13/17 12/13/17 Ipratropium [place] [Atrovent Hfa] 2 puff INHALATION RT-QID 12/13/17 12/13/17 Previous Rx's Medication Instructions Recorded Nicotine 21Mg/24Hr Patch [Habitrol] 1 patch TRANSDERM DAILY #30 patch 12/08/16 cefTRIAXone [Rocephin] 2,000 mg IVP Q24HR #42 syr 11/26/17 metroNIDAZOLE [Flagyl] 500 mg PO TID #126 tab 11/27/17 Allergies Allergy/AdvReac Type Severity Reaction Status Date / Time Penicillins Allergy Unknown Verified 12/13/17 12:15 Review of Systems ROS Statement: Those systems with pertinent positive or pertinent negative responses have been documented in the HPI. ROS Other: All systems not noted in ROS Statement are negative. Past Medical History Past Medical History: COPD, Hypertension Additional Past Medical History / Comment(s): chronic back, neck, shoulder pain , osteomylitis in jaw History of Any Multi-Drug Resistant Organisms: None Reported Past Surgical History: No Surgical Hx Reported Past Anesthesia/Blood Transfusion Reactions: No Reported Reaction Past Psychological History: No Psychological Hx Reported Smoking Status: Current every day smoker Past Alcohol Use History: None Reported Past Drug Use History: Marijuana - Past Family History Mother Family Medical History: Cancer Additional Family Medical History / Comment(s): Lung Cancer Father Family Medical History: Congestive Heart Failure (CHF), Dementia Additional Family Medical History / Comment(s): Bipolar General Exam Limitations: no limitations General appearance: alert, in no apparent distress Respiratory exam: Present: normal lung sounds bilaterally. Absent: respiratory distress, wheezes, rales, rhonchi, stridor Cardiovascular Exam: Present: regular rate, normal rhythm, normal heart sounds. Absent: systolic murmur, diastolic murmur, rubs, gallop, clicks Extremities exam: Present: other (Left bicep region there is a PICC line noted mild swelling at the insertion site with no erythema no purulent drainage dressing intact, clean radial pulses equal bilaterally, no tenderness in the left axilla) Skin exam: Present: warm, dry, intact Course Vital Signs 12/13/17 12/13/17 11:46 13:43 Temperature 98.2 F Pulse Rate 62 71 Respiratory 18 18 Rate Blood Pressure 141/87 131/91 O2 Sat by Pulse 100 71 L Oximetry Medical Decision Making - Medical Decision Making 47-year-old male presents emergency department for possible infection to his PICC line. There is some swelling noted at the site but very minimal erythema. Patient had lab work and ultrasound which shows evidence of a nonoccluding thrombus and the basic vein which is superficial. Patient has no clinical signs of infection at this time. We discussed that he needs a follow-up ultrasound in 1 week to make sure he is not developing any further clot. Patient will continue warm compresses, ibuprofen and return for any worsening symptoms. - Lab Data Result diagrams: 12/13/17 13:41 12/13/17 13:41 Lab Results 12/13/17 12/13/17 12/13/17 Range/Units 13:41 13:41 13:41 WBC 8.2 (3.8-10.6) k/uL RBC 3.80 L (4.30-5.90) m/uL Hgb 11.9 L (13.0-17.5) gm/dL Hct 37.0 L (39.0-53.0) % MCV 97.3 (80.0-100.0) fL MCH 31.3 (25.0-35.0) pg MCHC 32.2 (31.0-37.0) g/dL RDW 13.4 (11.5-15.5) % Plt Count 183 (150-450) k/uL Neutrophils % 75 % Lymphocytes % 13 % Monocytes % 7 % Eosinophils % 3 % Basophils % 0 % Neutrophils # 6.1 (1.3-7.7) k/uL Lymphocytes # 1.1 (1.0-4.8) k/uL Monocytes # 0.6 (0-1.0) k/uL Eosinophils # 0.2 (0-0.7) k/uL Basophils # 0.0 (0-0.2) k/uL PT (9.0-12.0) sec INR (<1.2) APTT (22.0-30.0) sec Sodium 140 (137-145) mmol/L Potassium 4.0 (3.5-5.1) mmol/L Chloride 112 H (98-107) mmol/L Carbon Dioxide 22 (22-30) mmol/L Anion Gap 6 mmol/L BUN 12 (9-20) mg/dL Creatinine 0.61 L (0.66-1.25) mg/dL Est GFR (CKD-EPI)AfAm >90 (>60 ml/min/1.73 sqM) Est GFR (CKD-EPI)NonAf >90 (>60 ml/min/1.73 sqM) Glucose 93 (74-99) mg/dL Plasma Lactic Acid Chapo 0.6 L (0.7-2.0) mmol/L Calcium 9.3 (8.4-10.2) mg/dL Total Bilirubin 0.3 (0.2-1.3) mg/dL AST 24 (17-59) U/L ALT 33 (21-72) U/L Alkaline Phosphatase 47 (38-126) U/L Total Protein 6.2 L (6.3-8.2) g/dL Albumin 3.6 (3.5-5.0) g/dL 12/13/17 Range/Units 13:41 WBC (3.8-10.6) k/uL RBC (4.30-5.90) m/uL Hgb (13.0-17.5) gm/dL Hct (39.0-53.0) % MCV (80.0-100.0) fL MCH (25.0-35.0) pg MCHC (31.0-37.0) g/dL RDW (11.5-15.5) % Plt Count (150-450) k/uL Neutrophils % % Lymphocytes % % Monocytes % % Eosinophils % % Basophils % % Neutrophils # (1.3-7.7) k/uL Lymphocytes # (1.0-4.8) k/uL Monocytes # (0-1.0) k/uL Eosinophils # (0-0.7) k/uL Basophils # (0-0.2) k/uL PT 10.4 (9.0-12.0) sec INR 1.1 (<1.2) APTT 23.4 (22.0-30.0) sec Sodium (137-145) mmol/L Potassium (3.5-5.1) mmol/L Chloride (98-107) mmol/L Carbon Dioxide (22-30) mmol/L Anion Gap mmol/L BUN (9-20) mg/dL Creatinine (0.66-1.25) mg/dL Est GFR (CKD-EPI)AfAm (>60 ml/min/1.73 sqM) Est GFR (CKD-EPI)NonAf (>60 ml/min/1.73 sqM) Glucose (74-99) mg/dL Plasma Lactic Acid [place] (0.7-2.0) mmol/L Calcium (8.4-10.2) mg/dL Total Bilirubin (0.2-1.3) mg/dL AST (17-59) U/L ALT (21-72) U/L Alkaline Phosphatase (38-126) U/L Total Protein (6.3-8.2) g/dL Albumin (3.5-5.0) g/dL Disposition Clinical Impression: Superficial vein thrombosis Disposition: HOME SELF-CARE Condition: Stable Instructions: Superficial Thrombophlebitis (ED) Additional Instructions: Please return to the Emergency Department if symptoms worsen or any other concerns. Follow up for repeat ultrasound. Is patient prescribed a controlled substance at d/c from ED?: No Referrals: Diego Chang DO [Primary Care Provider] - 1-2 days Time of Disposition: 14:58
[2017-12-13 14:16] LABS: ALT 33 U/L (21-72); AST 24 U/L (17-59); Albumin 3.6 g/dL (3.5-5.0); Alkaline Phosphatase 47 U/L (38-126); Anion Gap 6 mmol/L; Blood Urea Nitrogen 12 mg/dL (9-20); Calcium 9.3 mg/dL (8.4-10.2); Carbon Dioxide 22 mmol/L (22-30); Chloride 112 mmol/L (98-107); Glucose 93 mg/dL (74-99); Sodium 140 mmol/L (137-145); Total Bilirubin 0.3 mg/dL (0.2-1.3); Total Protein 6.2 g/dL (6.3-8.2)
--- NOTE | 2017-12-13 14:42 | US ---
EXAMINATION TYPE: US venous doppler duplex UE LT DATE OF EXAM: 12/13/2017 COMPARISON: NONE CLINICAL HISTORY: Pain. Recent left arm pain around PICC line site, line put in 3 weeks ago SIDE PERFORMED: Left Left Arm: Appears negative for DVT, non occluding thrombus seen around PICC line within upper portion of superficial basilic vein. IMPRESSION: 1. No evidence of DVT 2. There is nonoccluding thrombus seen surrounding the PICC line within the left basilic vein
[2017-12-13 15:23] VITALS: BP 130/90; PULSE 65
== END 2017-12-13 15:32 | disposition home or self-care (01) ==
LOC: EC 11:45
DX: I82.612 Acute embolism and thrombosis of superficial veins of left upper extremity (principal); J44.9 Chronic obstructive pulmonary disease, unspecified; I10 Essential (primary) hypertension; F17.200 Nicotine dependence, unspecified, uncomplicated; Z79.1 Long term (current) use of non-steroidal anti-inflammatories (NSAID); Z79.899 Other long term (current) drug therapy; Z88.0 Allergy status to penicillin
CPT/HCPCS: 36415; 80053; 83605; 85025; 85610; 85730; 87040; 99284

== ENCOUNTER → 2018-09-05 | Outpatient (CLI) | payer OTHER ==
--- NOTE | 2018-09-05 15:54 | XR ---
EXAMINATION TYPE: XR chest 2V DATE OF EXAM: 09/05/2018 COMPARISON: Prior chest x-ray 11/23/2017 HISTORY: Abnormal weight loss TECHNIQUE: Frontal and lateral views of the chest are obtained. FINDINGS: There is no focal air space opacity, pleural effusion, or pneumothorax seen. The cardiac silhouette size is within normal limits. The osseous structures are intact. There is a mild spinal curvature. Prominent lung volume with flattening the hemidiaphragms may be indicative of underlying C OPD. IMPRESSION: No acute cardiopulmonary process.
== END | disposition home or self-care (01) ==
LOC: RADXRYALE 11:39
PROVIDERS: ATTEND Family Medicine
DX: R63.4 Abnormal weight loss (principal)
CPT/HCPCS: 71046